=== PATIENT | female | born 1955 | race Caucasian/White ===

== ENCOUNTER 2024-08-14 14:15 | Outpatient (AMB) | payer MEDICARE, OTHER, SELFPAY ==
--- NOTE | 2024-08-14 14:21 | A.OFFPC_ITS ---
Vital Signs 08/14/24 14:35 08/14/24 14:51 Height 5 ft Weight 176 lb 2 oz BMI 34.4 BP 124/68 Blood Pressure Location Lt brachial Position Sitting Respiration 16 Pulse 86 Pulse Source Pulse Oximeter Temp 98.1 F Temp Source Oral Pulse Oximetry (%) 91 L 95 Oxygen Delivery Method Room Air Intake Visit Reasons: edmund from [facility] Intake Note: patient here for EDMUND from [facility]. 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 Is last menstrual period known: No Post menopausal: No Patient : No Allergies latex Allergy (Mild, Uncoded 08/14/24 14:27) rash Tobacco use date assessed: 08/14/24 Fall risk assessment: No Falls in past year Last assessed Fall Risk: 08/14/24 Dental Screening Dental Screen Date: 08/14/24 Did you have a dental visit in the last 12 months?: No Did you have a dental problem in the last 6 months where you did not have access to dental care?: No Was dental information given to patient?: No HPI HPI Comments History of Present Illness Details This is a 69-year-old female with a history of hyperlipidemia, hypothyroidism, DVT of the lower extremity, aneurysm of the ascending aorta, osteopenia and obesity presenting for follow up. She transferred from my panel at [facility] primary care. She is doing okay. Her needs back surgery soon. Hyperlipidemia taking atorvastatin 10 mg at bedtime. She is due for labs. Hypothyroidism-taking levothyroxine 137 mcg once daily. Due for TSH. 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 She has only trace aortic valve regurgitation. She was instructed to follow up in 1 year. She denies chest pain, shortness of breath, syncope or dizziness. She had an ultrasound of the abdominal aorta which was normal in 02/05/2021. She had an unremarkable nuclear stress test. Left lower extremity DVT-previously reviewed notes from Hematology consult from 06/16/2021. She suffered a DVT without provoking factor in 2018. She was initially treated with warfarin and is now on Xarelto. She has no bleeding or complications or recurrent thrombosis. Notes indicate thrombophilia workup was done. Shared decision to continue anticoagulation due to risk of recurrence off anticoagulation. Osteopenia on calcium and vitamin-D supplementation. She had a colonoscopy in 07/08/2023, and it was recommended to repeat it in 5 years for precancerous polyps. She will receive the COVID-19 booster and flu vaccine at her pharmacy. ROS: Constitutional: No unexplained weight loss, fever, chills, fatigue or night sweats. Respiratory: No shortness of breath, cough or sputum production. Cardiovascular: No chest pain, chest pressure or chest discomfort. No palpitations or pedal edema. Gastrointestinal: No anorexia, nausea, vomiting or diarrhea. No abdominal pain or blood in stool. Neurologic: No headache, dizziness, syncope, unilateral weakness, ataxia, numbness or tingling in the extremities. Physical exam: Constitutional: Alert, in no distress. Neck: Supple, Full range of motion. No lymphadenopathy. No palpable thyroid masses. Respiratory: Clear to auscultation. Cardiovascular: S1 S2 regular. No murmurs. Neurologic: No focal neurological deficits Extremities: Warm and well perfused. No clubbing, cyanosis or edema. Psychiatric: Normal mood and affect [facility] Medical History (Updated 08/14/24 @ 15:16 by YONI Borges) Osteopenia Thoracic aortic aneurysm (TAA) Deep vein thrombosis, lower left extremity Colon polyps Pure hypercholesterolemia Hypothyroidism Psoriasis Eczema Thyroid disease History of aneurysm History of blood clots High cholesterol Sinusitis FH: cholecystectomy Surgical History (Updated 08/14/24 @ 14:46 by Maria Elena Perez) H/O: hysterectomy Family History (Updated 08/14/24 @ 14:51 by Maria Elena Perez) Mother Clotting disorder Father Cancer Social History Housing: House Patient Tobacco Use Status: Never used Tobacco e-Cigarette/Vaping Use: Never Used Second Hand Smoke Exposure: No service: No Current occupational status: retired Current occupational exposures/hazards: No Cognitive needs: No Hearing needs: No Vision needs: No Questionnaire PHQ-9 Over the last 2 weeks, how often have you been bothered by any of the following problems? 1. Little interest or pleasure in doing things: not at all 2. Feeling down, depressed, or hopeless: not at all 3. Trouble falling or staying asleep, or sleeping too much: several days 4. Feeling tired or having little energy: not at all 5. Poor appetite or overeating: several days 6. Feeling bad about yourself - or that you are a failure or have let yourself or your family down: not at all 7. Trouble concentrating on things, such as reading the newspaper or watching television: not at all 8. Moving or speaking so slowly that other people could have noticed. Or the opposite - being so fidgety or restless that you have been moving around a lot more than usual: not at all 9. Thoughts that you would be better off or of hurting yourself in some way: not at all Total score: 2 75577 - PHQ-9 Billing: Yes Source: Developed by Drs. Ham Rodriguez, Wendy Garcia, Saeed Ariza and colleagues, with an educational natividad from [employer]. Thrive Questionnaire Date Thrive assessed: 08/14/24 I am a: Patient What is your living situation today?: I have a steady place to live Within the past 12 months, did the food you bought not last and you didn't have the money to get more?: Never true Within the past 12 months, did you worry whether your food would run out before you got money to buy more?: Never true Do you have trouble paying for medicines?: No Do you have trouble getting transportation to medical appointments?: No Do you have trouble paying your heating and electricity bill?: No Do you have trouble taking care of your child, family member or friend?: No Do you have trouble with day-to-day activities such as bathing, preparing meals, shopping, managing finances, etc.?: No Are you currently unemployed and looking for a job?: No Are you interested in more education?: No Please select the resources that you would like help with: None Currently or been in a relationship where the following occur: No concerns reported THRIVE Score: 0 AUDIT C Alcohol Use Questionnaire (AUDIT-C) 1. How often do you have a drink containing alcohol?: Never Total Score: 0 BROOK-7 AMB Questionnaire BROOK-7 Date BROOK - 7 assessed: 08/14/24 Feeling nervous, anxious, or on edge: 0 = Not at all Not being able to stop or control worryin = Not at all Worrying too much about different things: 0 = Not at all Trouble relaxin = Not at all Being so restless that it is hard to sit still: 2 = More than half the days Becoming easily annoyed or irritable: 0 = Not at all Feeling afraid as if something awful might happen: 0 = Not at all Total BROOK-7 score (0-4 normal; 5-9 mild; 10-14 moderate; 15-21 severe): 2 Source: Developed by Drs. Ham Rodriguez, Wendy Garcia, Saeed Ariza and colleagues, with an educational natividad from [employer]. BROOK-7 Assessment Billing BROOK-7 Assessment Tool: BROOK-7 Assessment 65643 Physical exam (Primary Care) Vital Signs: Last Vital Signs Temp 98.1 F 08/14/24 14:35 Pulse 86 08/14/24 14:35 Resp 16 08/14/24 14:35 BP 124/68 08/14/24 14:35 Pulse Ox 95 08/14/24 14:51 Oxygen Delivery Method Room Air 08/14/24 14:35 BMI result Body Mass Index 34.4 Tobacco/Smoking Status: Tobacco use Status Tobacco use date assessed 08/14/24 08/14/24 14:34 Patient Tobacco Use Status Never used Tobacco 08/14/24 14:34 e-Cigarette/Vaping Use Never Used 08/14/24 14:34 PHQ-9: PHQ-9 Score PHQ-9: Total score 2 08/14/24 14:58 Thrive Assessment: Date of Thrive Assessment Date Thrive assessed 08/14/24 08/14/24 14:41 Currently or been in a relationship where the following occur: No concerns reported Assessment and Plan Assessment & Plan (1) Thoracic aortic aneurysm (TAA): Code(s): I71.20 - Thoracic aortic aneurysm, without rupture, unspecified Qualifiers: Presence of rupture: without rupture Thoracic aorta location: ascending aorta Qualified Code(s): I71.21 - Aneurysm of the ascending aorta, without rupture Plan: Patient had a CT chest within the past year and will follow up with Cardiology as planned this September. (2) Osteopenia: Code(s): M85.80 - Other specified disorders of bone density and structure, unspecified site Qualifiers: Osteopenia location: unspecified Qualified Code(s): M85.80 - Other specified disorders of bone density and structure, unspecified site Plan: Continue calcium and vitamin-D supplementation, avoidance of smoking and weight- bearing exercise. (3) Deep vein thrombosis, lower left extremity: Code(s): I82.402 - Acute embolism and thrombosis of unspecified deep veins of left lower extremity Plan: Continue Xarelto 10 mg daily. (4) Colon polyps: Comment: Due for colonoscopy 06/2028 Code(s): K63.5 - Polyp of colon (5) Pure hypercholesterolemia: Code(s): E78.00 - Pure hypercholesterolemia, unspecified Plan: Continue atorvastatin. Low-cholesterol diet and weight loss encouraged. Check fasting lipid profile. (6) Hypothyroidism: Code(s): E03.9 - Hypothyroidism, unspecified Plan: Continue levothyroxine. Check TSH. Plan Follow up in 6 months. Orders: Orders TSH reflex Free T4 Today E03.9 - Hypothyroidism, unspecified, E78.00 - Pure hypercholesterolemia, unspecified, L40.9 - Psoriasis, unspecified Comprehensive Met. Panel Today E03.9 - Hypothyroidism, unspecified, E78.00 - Pure hypercholesterolemia, unspecified, L40.9 - Psoriasis, unspecified Complete Blood Count no Diff Today E03.9 - Hypothyroidism, unspecified, E78.00 - Pure hypercholesterolemia, unspecified, L40.9 - Psoriasis, unspecified Vitamin D 1,25 dihydroxy Today E03.9 - Hypothyroidism, unspecified, E78.00 - Pure hypercholesterolemia, unspecified, L40.9 - Psoriasis, unspecified Lipid Panel Today E03.9 - Hypothyroidism, unspecified, E78.00 - Pure hypercholesterolemia, unspecified, E78.5 - Hyperlipidemia, unspecified, L40.9 - Psoriasis, unspecified Coding Level of Care Code Est Pt Level 4 (96070) Complex EM visit Add On G2211 Diagnoses Aneurysm of ascending aorta without rupture I71.21 Presence of rupture: without rupture Thoracic aorta location: ascending aorta Osteopenia, unspecified location M85.80 Osteopenia location: unspecified Deep vein thrombosis, lower left extremity I82.402 Colon polyps K63.5 Pure hypercholesterolemia E78.00 Hypothyroidism E03.9 Additional Codes BROOK-7 Assessment Billing - BROOK-7 Assessment Tool: BROOK-7 Assessment 77070 ([id number])
[2024-08-14 14:35] VITALS: BP 124/68; PULSE 86; RESP 16; TEMP 36.7; O2SAT 91; BMI 34.4
[2024-08-14 14:51] VITALS: O2SAT 95
== END 2024-08-14 15:08 | disposition home or self-care (01) ==
PROVIDERS: PCP Physician Assistant Medical; Visit Provider Physician Assistant Medical
DX: I71.21 Aneurysm of the ascending aorta, without rupture (principal); M85.80 Other specified disorders of bone density and structure, unspecified site; I82.402 Acute embolism and thrombosis of unspecified deep veins of left lower extremity; K63.5 Polyp of colon; E78.00 Pure hypercholesterolemia, unspecified; E03.9 Hypothyroidism, unspecified

== ENCOUNTER → 2024-08-14 14:15 | Outpatient (BNVA) | payer MEDICARE, OTHER, SELFPAY | PROVIDERS: PCP Physician Assistant Medical; Visit Provider Physician Assistant Medical | DX: I71.21 Aneurysm of the ascending aorta, without rupture (principal); M85.80 Other specified disorders of bone density and structure, unspecified site; I82.402 Acute embolism and thrombosis of unspecified deep veins of left lower extremity; K63.5 Polyp of colon; E78.00 Pure hypercholesterolemia, unspecified; E03.9 Hypothyroidism, unspecified; Z79.01 Long term (current) use of anticoagulants; Z79.899 Other long term (current) drug therapy | CPT/HCPCS: 96127; 99212 ==

== ENCOUNTER 2024-08-28 07:58 | Outpatient (REF) | payer MEDICARE, OTHER, SELFPAY ==
[2024-08-28 11:43] LABS: Hematocrit 44.9 % (37.0-47.0); Hemoglobin 14.8 g/dl (12.0-16.0); Mean Corpuscular Hemoglobin 30.7 pg (27.0-33.0); Mean Corpuscular Volume 93.2 fL (80.0-98.0); Mean Platelet Volume 9.8 fL (9.4-12.3); Platelet Count 206 X10*3/uL (160-400); Red Blood Count 4.82 X10*6/uL (4.20-5.50); Red Cell Distribution Width 12.4 % (11.0-16.0); White Blood Count 5.2 X10*3/uL (4.8-10.8)
[2024-08-28 12:16] LABS: Alanine Aminotransferase 23 U/L (0-31); Albumin Level 4.4 g/dL (3.5-5.0); Alkaline Phosphatase 58 U/L (39-117); Anion Gap 12 (12-20); Aspartate Amino Transferase 19 U/L (5-31); Bilirubin Total 0.3 mg/dL (0.0-1.0); Blood Urea Nitrogen 14 mg/dL (9-16); Calcium 9.9 mg/dL (8.4-10.2); Carbon Dioxide 25 mmol/L (22-29); Chloride 107 mmol/L (96-108); Cholesterol 138 mg/dL (<200); Estimated Glomerular Filt Rate > 60; Glucose Random 100 mg/dL (60-115); HDL Cholesterol 45 mg/dL (>40); LDL Cholesterol Calculated 74 mg/dL (<100); Potassium 4.3 mmol/L (3.3-5.1); Sodium 140 mmol/L (135-145); TSH reflex Free T4 3.49 uIU/mL (0.32-4.0); Total Protein 7.3 g/dL (6.5-8.0); Triglycerides 99 mg/dL (<150)
[2024-09-01 12:03] LABS: VITAMIN D (1,25 OH) D3 62 pg/mL; Vit D (1,25-Dihydroxy) Total 62 pg/mL (18-72); Vitamin D (1,25 OH) D2 <8 pg/mL
== END 2024-08-28 07:59 | disposition home or self-care (01) ==
LOC: HO.WFDLDS 07:58
PROVIDERS: Visit Provider Physician Assistant Medical
DX: E03.9 Hypothyroidism, unspecified (principal); E78.00 Pure hypercholesterolemia, unspecified; L40.9 Psoriasis, unspecified; E78.5 Hyperlipidemia, unspecified
CPT/HCPCS: 36415; 80053; 80061; 82652; 84443; 85027

== ENCOUNTER 2024-10-25 11:35 | Emergency (ER) | payer MEDICARE, OTHER, SELFPAY ==
--- NOTE | 2024-10-25 11:50 | ED_ITS ---
HPI - Ear Problem General Chief complaint: Ear Problems Stated complaint: ear and sisnus infection Time Seen by Provider: 10/25/24 15:22 Source: patient Mode of arrival: ambulatory Limitations: no limitations History of Present Illness ED Provider: MARTY STEPHENSON PA-C HPI Narrative: 69 year old female with pmhx significant for hypothyroidisim, HLD, DVT on AC therapy presents to the ED today for evaluation of sinus pressure, head congestion, eye watering and bilateral ear pain (L>R) x1 week. Reports pain over her maxillary sinuses, worse with palpation. Admits to history of sinus infec tions and states this feels similar. Denies fever, chills, sore throat, cough, chest pain, SOB, wheezing. Denies ear drainage, eye crusting, eye pain. UTD on all vaccinations. Related Data Home Medications ?Medication ?Instructions ?Recorded ?Confirmed cetirizine 10 mg capsule (Zyrtec) 10 mg PO DAILY PRN 08/14/24 Previous Rx's ?Medication ?Instructions ?Recorded atorvastatin 10 mg tablet 10 mg PO BEDTIME #90 tabs 09/30/24 levothyroxine 137 mcg capsule 137 mcg PO DAILY #90 caps 09/30/24 rivaroxaban 10 mg tablet (Xarelto) 10 mg PO DAILY #90 tabs 09/30/24 amoxicillin 875 mg-potassium 1 tab PO BID 7 days #14 tabs 10/25/24 clavulanate 125 mg tablet ciprofloxacin 0.3 %-dexamethasone 4 drp otic (ear) left BID 7 days 10/25/24 0.1 % ear drops,suspension #7.5 mL Allergies Allergy/AdvReac Type Severity Reaction Status Date / Time phenazopyridine Allergy Unknown Verified 10/25/24 11:51 [From Pyridium] latex Allergy Mild rash Uncoded 10/25/24 11:51 Review of Systems Review of Systems: Constitutional: No fever, chills, fatigue, night sweats, weight changes ENT/Mouth: No hearing loss, nasal congestion, rhinorrhea, sore throat, +sinus pain. +left ear pain Eyes: No eye pain, swelling, redness, vision changes, discharge Cardio: No chest pain, palpitations, PUGA, orthopnea, peripheral edema Pulm: No SOB, cough, sputum, wheezing, dyspnea, hemoptysis GI: No nausea, vomiting, hematemesis, abdominal pain, diarrhea, constipation, hematochezia, melena : No irregular bleeding, dysuria, frequency, urgency, hesitancy, hematuria, flank pain, urinary flow changes, urinary incontinence or retention MSK: No back pain, neck pain, joint pain, myalgias Skin: No lesions, rashes Neuro: No weakness, numbness, paresthesias, LOC, dizziness, +headache Psych: No anxiety/panic, depression, SI/HI, AH/VH All other systems reviewed and are negative. [facility] Past Medical History Attestation statement: The following information was validated with the patient. Source: old records reviewed and nursing notes reviewed Medical History Osteopenia Thoracic aortic aneurysm (TAA) Deep vein thrombosis, lower left extremity Colon polyps Pure hypercholesterolemia Hypothyroidism Psoriasis Eczema Thyroid disease History of aneurysm History of blood clots High cholesterol Sinusitis FH: cholecystectomy Surgical History H/O: hysterectomy Family History Family History Mother Clotting disorder Father Cancer Social History Social History Housing: House Patient Tobacco Use Status: Never used Tobacco e-Cigarette/Vaping Use: Never Used Second Hand Smoke Exposure: No Advance Directives: No Advance Directives Information Provided: No Do you have a plan to hurt others: No Plan service: No Current occupational status: retired Current occupational exposures/hazards: No Cognitive needs: No Hearing needs: No Vision needs: No Physical Exam Vital Signs: Vital Signs: Last Vital Signs Temp 97.8 F 10/25/24 14:33 Pulse 76 10/25/24 14:33 Resp 19 10/25/24 14:33 BP 164/88 H 10/25/24 14:33 Pulse Ox 98 10/25/24 14:33 O2 Del Method Room Air 10/25/24 14:33 BMI result Body Mass Index 34.2 hypertensive, vitals otherwise wnl. afebrile. General: Well appearing, in no acute distress. Skin: Warm, dry, intact. No rashes or lesions. Head: Normocephalic, atraumatic. EENT: Hearing is intact b/l. Conjunctiva clear. PERRLA. EOM intact without pain. Moist mucous membranes.? Exquisitely tender to percussion of bilateral maxillary sinuses. + pain on manipulation of left pinna. No mastoid tenderness. Left EAC erythematous and edematous without noted discharge TM intact without erythema, effusion, or bulging. + No pain on manipulation of right pinna or tragus. No mastoid tenderness. Right EAC without erythema, edema or discharge. TM intact without erythema, effusion, or bulging. Neck: Supple without LAD Cardiac: Chest wall symmetric. RRR Lungs: Normal respiratory effort without accessory muscle use. CTA bilaterally? Back: No midline spinous or paraspinal tenderness. No step off deformity. Ext: Upper and lower extremities atraumatic, without tenderness, deformity, swelling or erythema Neuro: AOx3. Normal speech. Ambulating with steady gait. Psych: Appropriate mood and affect. Responds appropriately to questions. Course Course Course Narrative: This is a rapid medical exam. Deferred additional HPI, ROS, PE to primary provider. 69 yo female with history of hypothyroidisim, HLD, DVT on AC therapy here with complaints of headache, sinus pain/pressure, eye watering, ear pain x 1 week. Will obtain viral testing. NAA Dang APRN Reevaluation(s) Reevaluation #1: 1540 -- patient tested negative for COVID, flu, RSV. Her exam is consistent with maxillary sinusitis along with left otitis externa. She was given a dose of Augmentin in the ED today. Will send Augmentin and Ciprodex to pharmacy for treatment. Patient has remained stable throughout ED visit today. Discussed worrisome signs and symptoms and when to return to the ED. All questions answered at this time. Patient is agreeable with disposition and stable for discharge. Medical Decision Making Medical Decision Making MDM Narrative: 69 year old female with pmhx significant for hypothyroidisim, HLD, DVT on AC therapy presents to the ED today for evaluation of sinus pressure, head congestion, eye watering and bilateral ear pain (L>R) x1 week. Vital signs stable. afebrile. she is nontoxic appearing and in NAD. on exam, exquisitely ten pedro to percussion of bilateral maxillary sinuses. pain on manipulation of left pinna. No mastoid tenderness. Left EAC erythematous and edematous without noted discharge TM intact without erythema, effusion, or bulging. Differential diagnosis includes viral syndrome, sinusitis, otitis media versus otitis externa. No concern for mastoiditis, malignant otitis externa. Plan for viral swabs, re-evaluation Differential Diagnosis Differential Diagnoses: The differential diagnosis associated with the presentation includes as above. Admission/Observation Not indicated. Lab Data MDM Lab Attestation statement: I reviewed the patient's lab results. as above. Labs: Lab Results 10/25/24 Range/Units 13:09 Influenza Type A (PCR) NEGATIVE (Negative) Influenza Type B (PCR) NEGATIVE (Negative) RSV RNA Qual (PCR) NEGATIVE (Negative) SARS-CoV-2 RNA (RT-PCR) NEGATIVE (Negative) Prescription Management I considered prescription management with: Antibiotic (augmentin) and Other (ciprodex) Social Determinants Patient?s care significantly limited by Social Determinants of Health including: Other Social Determinant of Health Critical Care Time Critical Care Time Critical Care Time: No Discharge Plan Discharge Clinical Impression: Sinusitis, Acute otitis externa of left ear Patient Disposition: Home, Self-Care Instructions: Sinusitis (ED), Otitis Externa (ED) Additional Instructions: You tested negative for COVID, flu, RSV. Your exam is consistent with a sinus infection and an outer ear infection of your left ear. Augmentin as an antibiotic that has been sent to your pharmacy to treat your sinus infection. You received your 1st dose in the ED today Take this as prescribed. I have also sent an ear drop to treat your ear infection. Use this as prescribed. Take tylenol and motrin as needed for headache. Follow up with your PCP this week. Return with new or worsening symptoms. In the case of an emergency call 911. Prescriptions: New amoxicillin-pot clavulanate 875-125 mg tablet 1 tab PO BID 7 Days Qty: 14 0RF ciprofloxacin-dexamethasone 0.3-0.1 % drops,suspension 4 drp otic (ear) left BID 7 Days Qty: 7.5 0RF No Action Xarelto 10 mg tablet 10 mg PO DAILY Qty: 90 3RF Rx Instructions: for 35 days levothyroxine 137 mcg capsule 137 mcg PO DAILY Qty: 90 3RF atorvastatin 10 mg tablet 10 mg PO BEDTIME Qty: 90 3RF Zyrtec 10 mg capsule 10 mg PO DAILY PRN Referrals: Jennifer Krishnamurthy PA [Primary Care Provider] - Print Language: Portuguese
[2024-10-25 11:51] VITALS: BP 167/97; PULSE 74; RESP 19; TEMP 36.6; O2SAT 98; BMI 34.2
[2024-10-25 14:30] LABS: Influenza A PCR NEGATIVE (Negative); Influenza B PCR NEGATIVE (Negative); Resp Syncy Virus RNA Qual PCR NEGATIVE (Negative); SARS COV2 PCR INHOUSE NEGATIVE (Negative)
[2024-10-25 14:33] VITALS: BP 164/88; PULSE 76; RESP 19; TEMP 36.6; O2SAT 98
[2024-10-25 15:55] VITALS: BP 148/81; PULSE 80; RESP 19; TEMP 36.8; O2SAT 97
[2024-10-25] MEDS: Amoxicillin/Potassium Clav 875 MG TABLET PO (15:55)
[2024-10-25 16:17] VITALS: BP 148/81; PULSE 80; RESP 19; TEMP 36.8; O2SAT 97
== END 2024-10-25 16:18 | disposition home or self-care (01) ==
PROVIDERS: Nurse Practitioner Family; Emergency Provider Emergency Medicine Emergency Medical Services; PCP Physician Assistant Medical
DX: J32.0 Chronic maxillary sinusitis (principal); H60.502 Unspecified acute noninfective otitis externa, left ear; Z03.818 Encounter for observation for suspected exposure to other biological agents ruled out
CPT/HCPCS: 0241U; 99282; 99283

== ENCOUNTER 2025-02-12 08:55 | Outpatient (AMB) | payer MEDICARE, OTHER, SELFPAY ==
--- NOTE | 2025-02-12 08:58 | A.OFFPC_ITS ---
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 Allergies phenazopyridine [From Pyridium] Allergy (Verified 02/12/25 08:58) Unknown latex Allergy (Mild, Uncoded 10/25/24 11:51) rash Medication List - Last Reconciled 02/12/25 by YONI Borges atorvastatin 10 mg PO BEDTIME cetirizine (Zyrtec) 10 mg PO DAILY PRN rivaroxaban (Xarelto) 10 mg PO DAILY Synthroid (levothyroxine) 137 mcg PO DAILY NS Tobacco use date assessed: 02/12/25 Fall risk assessment: 1 Fall in past year Last assessed Fall Risk: 02/12/25 Dental Screening Dental Screen Date: 02/12/25 Did you have a dental visit in the last 12 months?: Yes Did you have a dental problem in the last 6 months where you did not have access to dental care?: No Was dental information given to patient?: Patient has dentist HPI HPI Comments History of Present Illness Details This is a 69-year-old female with a history of hyperlipidemia, hypothyroidism, DVT of the lower extremity, aneurysm of the ascending aorta, osteopenia and obesity presenting for follow up. She is doing okay. Her is still dealing with back pain which could be related to Lyme disease. They are unsure if he needs back surgery. Hyperlipidemia taking atorvastatin 10 mg at bedtime. LDL cholesterol 74. Hypothyroidism-taking Synthroid 137 mcg once daily. TSH normal. History of ascending aortic aneurysm-patient reports she saw her child care associate in 2023. She had an echocardiogram which showed trace aortic valve regurgitation. She was instructed to follow up in 1 year. She denies chest pain, shortness of breath, syncope or dizziness. She had an ultrasound of the abdominal aorta which was normal in 02/05/2021. She had an unremarkable nuclear stress test. Patient requests referral back to Cardiology so they can schedule her follow up for 2024. Left lower extremity DVT-previously reviewed notes from Hematology consult from 06/16/2021. She suffered a DVT without provoking factor in 2018. She was initially treated with warfarin and is now on Xarelto. She has no bleeding or complications or recurrent thrombosis. Notes indicate thrombophilia workup was done. Shared decision to continue anticoagulation due to risk of recurrence off anticoagulation. Osteopenia-calcium and vitamin-D supplementation. She had a colonoscopy in 07/08/2023, and it was recommended to repeat it in 5 years for precancerous polyps. Patient endorses anxiety which is affecting her sleep. She has difficulty falling asleep and waking up at night and having difficulty falling back to sleep. Patient says that her mind races about all the things she needs to do the next day. During the day she is also anxious about getting them done. She endorses irritability. ROS: Constitutional: No unexplained weight loss, fever, chills, fatigue or night sweats. Respiratory: No shortness of breath, cough or sputum production. Cardiovascular: No chest pain, chest pressure or chest discomfort. No palpitations or pedal edema. Gastrointestinal: No anorexia, nausea, vomiting or diarrhea. No abdominal pain or blood in stool. Neurologic: No headache, dizziness, syncope, unilateral weakness, ataxia, numbness or tingling in the extremities. Physical exam: Constitutional: Alert, in no distress. Neck: Supple, Full range of motion. No lymphadenopathy. No palpable thyroid masses. Respiratory: Clear to auscultation. Cardiovascular: S1 S2 regular. No murmurs. Neurologic: No focal neurological deficits Extremities: Warm and well perfused. No clubbing, cyanosis or edema. Psychiatric: Normal mood and affect [facility] Medical History (Updated 02/13/25 @ 11:00 by YONI Borges) Anxiety Osteopenia Thoracic aortic aneurysm (TAA) Deep vein thrombosis, lower left extremity Colon polyps Pure hypercholesterolemia Hypothyroidism Psoriasis Eczema Thyroid disease History of aneurysm History of blood clots High cholesterol Sinusitis FH: cholecystectomy Surgical History H/O: hysterectomy Family History Mother Clotting disorder Father Cancer Social History Housing: House Patient Tobacco Use Status: Never used Tobacco e-Cigarette/Vaping Use: Never Used Second Hand Smoke Exposure: No service: No Current occupational status: retired Current occupational exposures/hazards: No Cognitive needs: No Hearing needs: No Vision needs: No Questionnaire PHQ-9 Over the last 2 weeks, how often have you been bothered by any of the following problems? 1. Little interest or pleasure in doing things: not at all 2. Feeling down, depressed, or hopeless: not at all 3. Trouble falling or staying asleep, or sleeping too much: several days 4. Feeling tired or having little energy: several days 5. Poor appetite or overeating: not at all 6. Feeling bad about yourself - or that you are a failure or have let yourself or your family down: not at all 7. Trouble concentrating on things, such as reading the newspaper or watching television: not at all 8. Moving or speaking so slowly that other people could have noticed. Or the opposite - being so fidgety or restless that you have been moving around a lot more than usual: not at all 9. Thoughts that you would be better off or of hurting yourself in some way: not at all Total score: 2 Depression Screening Interpretation: Negative Depression Screening Done: Yes 98615 - PHQ-9 Billing: Yes Source: Developed by Drs. Ham Rodriguez, Wendy Garcia, Saeed Ariza and colleagues, with an educational natividad from [employer]. Thrive Questionnaire Date Thrive assessed: 02/12/25 I am a: Patient What is your living situation today?: I have a steady place to live Within the past 12 months, did the food you bought not last and you didn't have the money to get more?: Never true Within the past 12 months, did you worry whether your food would run out before you got money to buy more?: Never true Do you have trouble paying for medicines?: No Do you have trouble getting transportation to medical appointments?: No Do you have trouble paying your heating and electricity bill?: No Do you have trouble taking care of your child, family member or friend?: No Do you have trouble with day-to-day activities such as bathing, preparing meals, shopping, managing finances, etc.?: No Are you currently unemployed and looking for a job?: No Are you interested in more education?: No Please select the resources that you would like help with: None Currently or been in a relationship where the following occur: No concerns reported THRIVE Score: 0 AUDIT C Alcohol Use Questionnaire (AUDIT-C) 1. How often do you have a drink containing alcohol?: Monthly or less 2. How many drinks containing alcohol do you have on a typical day when you are drinking?: 1 or 2 3. How often do you have six or more drinks on one occasion?: Never Total Score: 1 BROOK-7 AMB Questionnaire BROOK-7 Date BROOK - 7 assessed: 02/12/25 Feeling nervous, anxious, or on edge: 1 = Several days Not being able to stop or control worryin = Several days Worrying too much about different things: 1 = Several days Trouble relaxin = Several days Being so restless that it is hard to sit still: 1 = Several days Becoming easily annoyed or irritable: 1 = Several days Feeling afraid as if something awful might happen: 0 = Not at all Total BROOK-7 score (0-4 normal; 5-9 mild; 10-14 moderate; 15-21 severe): 6 Source: Developed by Drs. Ham Rodriguez, Wendy Garcia, Saeed Ariza and colleagues, with an educational natividad from [employer]. BROOK-7 Assessment Billing BROOK-7 Assessment Tool: BROOK-7 Assessment 16145 Physical exam (Primary Care) Vital Signs: Last Vital Signs Temp 97.1 F 02/12/25 09:01 Pulse 76 02/12/25 09:01 Resp 12 02/12/25 09:01 BP 124/70 02/12/25 09:01 Pulse Ox 95 02/12/25 09:01 Oxygen Delivery Method Room Air 02/12/25 09:01 BMI result Body Mass Index 35.2 Tobacco/Smoking Status: Tobacco use Status Tobacco use date assessed 02/12/25 02/12/25 09:00 Patient Tobacco Use Status Never used Tobacco 02/12/25 09:00 e-Cigarette/Vaping Use Never Used 02/12/25 09:00 PHQ-9: PHQ-9 Score PHQ-9: Total score 2 02/12/25 09:24 Depression Screening Interpretation: Negative Thrive Assessment: Date of Thrive Assessment Date Thrive assessed 02/12/25 02/12/25 09:00 Currently or been in a relationship where the following occur: No concerns reported Coding Level of Care Code Est Pt Level 4 (00529) Complex EM visit Add On G2211 Diagnoses Anxiety F41.9 Osteopenia, unspecified location M85.80 Osteopenia location: unspecified Deep vein thrombosis, lower left extremity I82.402 Chronicity: unspecified Colon polyps K63.5 Colon polyp type: unspecified Pure hypercholesterolemia E78.00 Other specified hypothyroidism E03.8 Hypothyroidism type: other Aneurysm of ascending aorta without rupture I71.21 Thoracic aorta location: ascending aorta Presence of rupture: without rupture Additional Codes BROOK-7 Assessment Billing - BROOK-7 Assessment Tool: BROOK-7 Assessment 11218 ([id number]) PHQ-9 - 32886 - PHQ-9 Billing: Yes ([id number]) Assessment & Plan Assessment & Plan (1) Anxiety: Code(s): F41.9 - Anxiety disorder, unspecified Category: Medical (2) Osteopenia: Code(s): M85.80 - Other specified disorders of bone density and structure, unspecified site Category: Medical Qualifiers: Osteopenia location: unspecified Qualified Code(s): M85.80 - Other specified disorders of bone density and structure, unspecified site (3) Deep vein thrombosis, lower left extremity: Code(s): I82.402 - Acute embolism and thrombosis of unspecified deep veins of left lower extremity Category: Medical Qualifiers: Chronicity: unspecified (4) Colon polyps: Comment: Due for colonoscopy 06/2028 Code(s): K63.5 - Polyp of colon Category: Medical Qualifiers: Colon polyp type: unspecified (5) Pure hypercholesterolemia: Code(s): E78.00 - Pure hypercholesterolemia, unspecified Category: Medical (6) Hypothyroidism: Code(s): E03.9 - Hypothyroidism, unspecified Category: Medical Qualifiers: Hypothyroidism type: other Qualified Code(s): E03.8 - Other specified hypothyroidism (7) Thoracic aortic aneurysm (TAA): Code(s): I71.20 - Thoracic aortic aneurysm, without rupture, unspecified Category: Medical Qualifiers: Thoracic aorta location: ascending aorta Presence of rupture: without rupture Qualified Code(s): I71.21 - Aneurysm of the ascending aorta, without rupture Plan Thoracic aortic aneurysm (TAA) Followed by Cardiology. Monitoring. Referred back so follow up can be schedule d for 2024. Blood pressure is well-controlled. Avoid alcohol and tobacco use. Osteopenia Continue calcium and vitamin-D supplementation, avoidance of smoking and weight- bearing exercise. Deep vein thrombosis, lower left extremity Continue Xarelto 10 mg daily. Colon polyps: Due for colonoscopy 06/2028 Pure hypercholesterolemia Continue atorvastatin. Low-cholesterol diet and weight loss encouraged. Hypothyroidism: Euthyroid. Continue Synthroid. Anxiety Declines referral for counseling. Reviewed medications available to treat symptoms. It is affecting sleep. She declines medication at this time. She is going to try THC/CBD gummies. She will let me know if her symptoms continue. Follow up in 6 months. Patient declines wellness visit Orders: Orders TSH reflex Free T4 5 Months E03.9 - Hypothyroidism, unspecified, E78.00 - Pure hypercholesterolemia, unspecified, I82.402 - Acute embolism and thrombosis of unspecified deep veins of left lower extremity, M85.80 - Other specified disorders of bone density and structure, unspecified site Lipid Panel 5 Months E03.9 - Hypothyroidism, unspecified, E78.00 - Pure hypercholesterolemia, unspecified, E78.5 - Hyperlipidemia, unspecified, I82.402 - Acute embolism and thrombosis of unspecified deep veins of left lower extremity, M85.80 - Other specified disorders of bone density and structure, unspecified site Vitamin D 25-OH (D2 and D3) 5 Months E03.9 - Hypothyroidism, unspecified, E78.00 - Pure hypercholesterolemia, unspecified, I82.402 - Acute embolism and thrombosis of unspecified deep veins of left lower extremity, M85.80 - Other specified disorders of bone density and structure, unspecified site Complete Blood Count no Diff 5 Months E03.9 - Hypothyroidism, unspecified, E78.00 - Pure hypercholesterolemia, unspecified, I82.402 - Acute embolism and thrombosis of unspecified deep veins of left lower extremity, M85.80 - Other specified disorders of bone density and structure, unspecified site Comprehensive Met. Panel 5 Months E03.9 - Hypothyroidism, unspecified, E78.00 - Pure hypercholesterolemia, unspecified, I82.402 - Acute embolism and thrombosis of unspecified deep veins of left lower extremity, M85.80 - Other specified disorders of bone density and structure, unspecified site Referrals Cardiology Referral I71.21 - Aneurysm of the ascending aorta, without rupture Medications: Discontinued amoxicillin-pot clavulanate 875-125 mg Discontinued Reason: Doctor's Order 1 tab PO BID 7 days 14 tabs 0RF ciprofloxacin-dexamethasone 0.3-0.1 % Discontinued Reason: Doctor's Order 4 drps otic (ear) left BID 7 days 7.5 mL 0RF
[2025-02-12 09:01] VITALS: BP 124/70; PULSE 76; RESP 12; TEMP 36.2; O2SAT 95; BMI 35.2
== END 2025-02-12 09:33 | disposition home or self-care (01) ==
LOC: HO.HMCFM 08:56
PROVIDERS: PCP Physician Assistant Medical; Visit Provider Physician Assistant Medical
DX: I82.402 Acute embolism and thrombosis of unspecified deep veins of left lower extremity (principal); I71.21 Aneurysm of the ascending aorta, without rupture; F41.9 Anxiety disorder, unspecified; M85.80 Other specified disorders of bone density and structure, unspecified site; K63.5 Polyp of colon; E78.00 Pure hypercholesterolemia, unspecified; E03.8 Other specified hypothyroidism

== ENCOUNTER → 2025-02-12 08:55 | Outpatient (BNVA) | payer MEDICARE, OTHER, SELFPAY | PROVIDERS: PCP Physician Assistant Medical; Visit Provider Physician Assistant Medical | DX: E03.8 Other specified hypothyroidism (principal); E78.5 Hyperlipidemia, unspecified; E66.9 Obesity, unspecified; M54.9 Dorsalgia, unspecified; F41.9 Anxiety disorder, unspecified; M85.80 Other specified disorders of bone density and structure, unspecified site; I82.402 Acute embolism and thrombosis of unspecified deep veins of left lower extremity; K63.5 Polyp of colon; E78.00 Pure hypercholesterolemia, unspecified; I71.21 Aneurysm of the ascending aorta, without rupture; Z86.718 Personal history of other venous thrombosis and embolism; Z79.899 Other long term (current) drug therapy | CPT/HCPCS: 96127; 99212 ==

== ENCOUNTER 2025-07-24 12:21 | Outpatient (AMB) | payer MEDICARE, OTHER, SELFPAY ==
--- NOTE | 2025-07-24 12:23 | AM.OFFWIN_ITS ---
Intake Vital Signs 07/24/25 12:26 Height 5 ft Weight 177 lb 6 oz BMI 34.6 BP 142/76 H Blood Pressure Location Rt brachial Position Sitting Respiration 12 Pulse 95 Pulse Source Pulse Oximeter Temp 97.8 F Temp Source Oral Pulse Oximetry (%) 98 Oxygen Delivery Method Room Air Intake Visit Reasons: Headache, pressure, earaches, both ears clogged. 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 Allergies phenazopyridine (From Pyridium) Allergy (Verified 07/24/25 12:24) Unknown latex Allergy (Mild, Uncoded 07/24/25 12:24) rash Medication List - Last Reconciled 07/24/25 by SORIN Estrada-BINH atorvastatin 10 mg PO BEDTIME cetirizine (Zyrtec) 10 mg PO DAILY PRN rivaroxaban (Xarelto) 10 mg PO DAILY Synthroid (levothyroxine) 137 mcg PO DAILY NS Do you need a note to return to daycare/school/sports/work: No HPI HPI Comments History of Present Illness Details 70 year-old female with hyperlipidemia, hypothyroidism, DVT of the lower extremity, aneurysm of the ascending aorta, osteopenia and obesity presenting with sinus pressure, difficulty hearing and chest pain. - Intermittent chest pain related to a k nown thoracic aortic aneurysm. Reports this is chronic and intermittent. Review of record: History of ascending aortic aneurysm-patient reports she saw her synthetic resin operator in 2023. She had an echocardiogram which showed trace aortic valve regurgitation. She was instructed to follow up in 1 year. She denies chest pain, shortness of breath, syncope or dizziness. She had an ultrasound of the abdominal aorta which was normal in 02/05/2021. She had an unremarkable nuclear stress test. Patient requests referral back to Cardiology so they can schedule her follow up for 2024. She reports being ff'd by Dr Arteaga. Next appt 09/2025. - Recent shortness of breath with onset within the past couple of weeks. - Denies cough, asthma, and COPD. - Head symptoms including sinus pressure and ear fullness preceded other sympto ms. - Sinus congestion began 2-3 weeks ago, treated unsuccessfully with OTC medications. - Denies dizziness or weakness, aside fr om head symptoms. Review of Systems - Respiratory: Reports chest pain; denie s cough. - Cardiac: Reports chest pain. - ENT: Reports sinus congestion, facial pressure, and ear fluid sensation. - General: Reports shortness of breath. - Neurological: Denies dizziness and wea kness. Physical Exam General: Awake, alert, no apparent distress Eyes: Sclera and conjunctiva clear bilaterally Ears: TM with mucoid effusions bilat Nose: turbinates pale and edematous, frontal and maxillary sinus tenderness bilat Throat: Moist mucosa membrane, pharynx within normal limits Cardiovascular: Regular rate and rhythm Respiratory: Clear to auscultation bilaterally Results Pending Discussion Notes I discussed with the patient the diagnosis of sinusitis and a known thoracic aortic aneurysm. Given her c/o chest pain recommended EKG. Declined, stating this is normal for her. To treat her sinus infection, I recommended starting Augmentin. We talked about the necessity of following up with a chest x-ray, particularly to evaluate the thoracic aortic aneurysm for any potential changes such as widening or leakage and to r/o PNA given c/o SOB. I encouraged completing this test today. I advised the continuation of usual medications and to notify us if there is no improvement after completing the antibiotic course. Patient was given time to ask questions. All questions were answered to their satisfaction. Assessment and Plan 1. Sinusitis/ETD - Augmentin prescribed for 7 days. - Monitor symptom resolution. 2. Thoracic Aortic Aneurysm - Recommend chest x-ray. - Evaluate for changes. - Declined EKG 3. Shortness of Breath - Monitor for resolution. 4. Chest Pain - Monitor symptoms. Patient Instructions - Take Augmentin as prescribed, with karmen d to prevent stomach upset. - Go for chest x-ray either today - Expect follow-up call or portal messag e for x-ray results. - If symptoms persist after antibiotics, send a portal message. - Rest and stay indoors when feeling unw ell. - Contact us if symptoms worsen. Consent Patient was informed and verbally consented to the use of an ambient scribe for clinic note documentation during this visit. Total time spent caring for the patient today was 30 minutes. This includes time spent before the visit reviewing the chart, time spent during the visit, and time spent after the visit on documentation, reviewing laboratory results, diagnostic imaging, medications, performing a medically necessary evaluation, counseling on diagnoses, care coordination, ordering appropriate tests, ordering appropriate medications, review of tests performed by other providers, reporting test results with the patient, communication with other healthcare providers. [facility] Medical History (Updated 02/13/25 @ 11:00 by YONI Borges) Anxiety Colon polyps Deep vein thrombosis, lower left extremity Eczema FH: cholecystectomy High cholesterol History of aneurysm History of blood clots Hypothyroidism Osteopenia Psoriasis Pure hypercholesterolemia Sinusitis Thoracic aortic aneurysm (TAA) Thyroid disease Surgical History H/O: hysterectomy Family History Mother Clotting disorder Father Cancer Social History Housing: House Patient Tobacco Use Status: Never used Tobacco e-Cigarette/Vaping Use: Never Used Second Hand Smoke Exposure: No service: No Current occupational status: retired Current occupational exposures/hazards: No Cognitive needs: No Hearing needs: No Vision needs: No Physical Exam Vital Signs: Last Vital Signs Temp 97.8 F 07/24/25 12:26 Pulse 95 07/24/25 12:26 Resp 12 07/24/25 12:26 BP 142/76 H 07/24/25 12:26 Pulse Ox 98 07/24/25 12:26 Oxygen Delivery Method Room Air 07/24/25 12:26 BMI result Body Mass Index 34.6 Results Reviewed Results Reviewed: The cardiac, hilar, and mediastinal contours are normal. Aortic mural calcification and tortuosity.1 Lungs demonstrate linear atelectasis or scarring in both lung bases. Lungs otherwise clear. No consolidation. There is no pneumothorax or pleural effusion. There is no focal osseous or soft tissue abnormality. There are cholecystectomy clips present. XR/XR chest 2V IMPRESSION: 1. No active pulmonary disease. 2. Marked tortuosity of the thoracic aorta with associated mural calcifications. Assessment & Plan Assessment & Plan (1) Thoracic aortic aneurysm (TAA): Code(s): I71.20 - Thoracic aortic aneurysm, without rupture, unspecified Qualifiers: Presence of rupture: without rupture Thoracic aorta location: ascending aorta Qualified Code(s): I71.21 - Aneurysm of the ascending aorta, without rupture (2) Acute bacterial sinusitis: Code(s): J01.90 - Acute sinusitis, unspecified; B96.89 - Other specified bacterial agents as the cause of diseases classified elsewhere Orders: Orders XR chest 2V Today I71.21 - Aneurysm of the ascending aorta, without rupture Medications: New amoxicillin-pot clavulanate 875-125 mg 1 tab PO BID 14 tabs 0RF 7 days Coding Diagnoses Aneurysm of ascending aorta without rupture I71.21 Presence of rupture: without rupture Thoracic aorta location: ascending aorta Acute bacterial sinusitis J01.90; B96.89
[2025-07-24 12:26] VITALS: BP 142/76; PULSE 95; RESP 12; TEMP 36.6; O2SAT 98; BMI 34.6
--- OUTSIDE RECORDS SUMMARY | 2025-07-24 12:50 | XMS_ITS | Clinical Summary ---
Author Organization [facility] [address] [facility] Address [address] [place] [address] Phone Care Team Providers Care Electron Beam Photo Mask Technician Name Role Phone Kym Peña MD Primary Care Provider [phone] Immunizations Name Administration Dates Next Due Pfizer SARS-CoV-2 COVID-19, mRNA, LNP-S, preservative free 03/10/2021,02/15/2021 Surgical History Surgery Date Site/Laterality Comments SECTION PROCEDURE: MD DELIVERY ONLY TONSILLECTOMY PROCEDURE: HISTORICAL TONSILLECTOMY TUBAL LIGATION PROCEDURE: HISTORICAL TUBAL LIGATION OTHER SURGICAL HISTORY PROCEDURE: MD TOT ABD HYST W/WO RMVL TUBE OVARY W/COLPURETHRXY; COMMENT: laparoscopic hyst, RSO, left ovary remains OTHER SURGICAL HISTORY PROCEDURE: PELVIC CONTROL PELVIC SLING; COMMENT: for MAN CHOLECYSTECTOMY 2013 PROCEDURE: LAPAROSCOPIC CHOLECYSTECT Medical History Medical History Date Comments Osteopenia 08/07/2012 DX:Osteopenia Personal history of tobacco use 11/06/2012 DX:Personal history of tobacco use Preseptal cellulitis 11/06/2012 DX:Presepta l cellulitis Prolapsed uterus DX:Prolapsed ut erus Family History Medical History Relation Name Comments Thyroid disease Daughter 1 Ovarian cancer Maternal Grandmother Abdominal Aortic Anuerysm (AAA) Mother ruptured age 68yo Breast cancer Neg Hx Colon cancer Neg Hx Uterine cancer Neg Hx Relation Name Status Comments Brother Alive healthy Daughter 1 Daughter 2 Alive healthy Daughter 3 Alive healthy Daughter 4 Alive healthy Father (Age 83) prostate C ancer, bone Cancer Maternal Grandmother Mother (Age 68) aortic ane urysm Paternal Grandfather (Age 65) [place] Sister 1 Alive healthy Sister 2 Alive healthy Sister 3 Alive healthy Sister 4 Alive healthy Son Alive healthy Social History Tobacco Use Types Packs/Day Years Used Date Smoking Tobacco: Former Cigarettes Q uit: 09/17/2011 Smokeless Tobacco: Never Alcohol Use Standard Drinks/Week Comments No 0 (1 standard drink = 0.6 oz pur e alcohol) Comments Unknown Sex and Gender Information Value Date Recorded Sex Assigned at Female 12/17/2024 10:39 AM EST Legal Sex Female 11:34 AM EST Gender Identity Female 12/17/2024 10:39 AM EST Sexual Orientation Not on file Obstetrics History Plan of Treatment Health Maintenance Due Date Last Done Comments Zoster Vaccines (2 of 3) 11/05/2013 09/10/2013 Cholesterol Screening (Lipid Panel) 10/28/2022 Colorectal Cancer Screening: Colonoscopy 10/28/2022 Falls Risk Assessment 10/28/2022 Hepatitis C Screening 10/28/2022 Medicare Annual Wellness Visit 10/28/2022 Social Influencers of Health Screening 10/28/2022 Depression Screening 11/19/2024 COVID-19 Vaccine ( season) 2025 09/08/2023, 09/25/2022, 10/20/2021, Additional history exists Influenza Vaccine (#1) 2025 , 09/07/2022, 10/20/2021, Additional history exists Breast Cancer Screening 09/21/2025 09/21/20 23, 09/18/2022, 09/12/2021, Additional history exists Lung Cancer Screening (Low Dose CT) 12/19/2025 12/19/2024, 12/17/2023, 12/15/2023, Additional history exists RSV Immunization Adult Patients (1 - 1-dose 75+ series) 02/25/2028 Osteoporosis Screening (Bone Density Screening) 08/18/2029 08/18/2019 DTaP,Tdap,and Td Vaccines (3 - Td or Tdap) 10/23/2032 10/23/2022, 09/05/2012 Pneumococcal Vaccine: 50+ Years Completed 12/24/2019, 09/03/2018 HIB Vaccines Aged Out No longer eligi ble based on patient's age to complete this topic HPV Vaccines Aged Out No longer eligi ble based on patient's age to complete this topic Hepatitis A Vaccines Aged Out No long er eligible based on patient's age to complete this topic Hepatitis B Vaccines Aged Out No long er eligible based on patient's age to complete this topic IPV Vaccines Aged Out No longer eligi ble based on patient's age to complete this topic MMR Vaccines Aged Out No longer eligi ble based on patient's age to complete this topic Meningococcal ACWY Vaccine Aged Out N o longer eligible based on patient's age to complete this topic Meningococcal B Vaccine Aged Out No l onger eligible based on patient's age to complete this topic RSV Immunization Patients Under 20 months Aged Out No longer eligible based on patient's age to complete this topic Varicella Vaccines Aged Out No longer eligible based on patient's age to complete this topic Procedures Procedure Name Priority Date/Time Associated Diagnosis Comments CT LUNG SCREENING Routine 12/19/2024 7:4 2 AM EST Personal history of nicotine dependence Encounter for screening for malignant neoplasm of respiratory organs SCREENING MAMMOGRAPHY BI 2-VIEW BREAST INC CAD Routine 09/21/2023 10:32 AM EDT Encounter for screening mammogram for malignant neoplasm of breast DXA BONE DENSITY STUDY 1+ SITS AXIAL SKEL Routine 08/18/2019 10:14 AM EDT Other specified disorders of bone density and structure, unspecified site from Last 3 Months or Most Recently Relevant to Health Maintenance Results * CT Lung Screening (12/19/2024 7:42 AM EST) Anatomical Region Laterality Modality Chest Computed Tomogra phy 12/23/2024 1:10 PM EST Impressions 12/23/2024 1:34 PM EST No new or suspicious pulmonary nodules. Lung RADS 1-negative. Recommend continued screening with low-dose chest CT in 12 months. -------- FINAL REPORT -------- Dictated By: TOBY MAXWELL Dictated Date: 12/23/2024 13:10 ET Assigned Physician: TOBY MAXWELL Reviewed and Electronically Signed By: TOBY MAXWELL Signed Date: 12/23/2024 13:34 ET Workstation ID: [id number] Transcribed By: Self Edit Transcribed Date: 12/23/2024 13:10 ET Narrative 12/23/2024 1:34 PM EST PROCEDURE: Chest CT INDICATION: Lung cancer screening, former smoker, 56 pack year smoking history TECHNIQUE: Chest CT without contrast. Multi planar reformats were created and interpreted. The examination was performed utilizing dose reduction techniques. Total DLP 167 COMPARISON: 12/15/2023 FINDINGS: LUNGS/PLEURA: Central airways are patent. No new or suspicious pulmonary nodules. Elevated left diaphragm with left greater than right basilar atelectasis/scarring. No pleural effusion or pneumothorax. MEDIASTINUM: Thyroid gland is unchanged with peripherally calcified nodules on the right. No mediastinal or hilar lymphadenopathy. Small hiatal hernia. Mild coronary artery calcifications. Cardiac chambers are normal in size. No pericardial effusion. Ascending thoracic aorta measures 3.9 cm at the level of the right pulmonary artery CHEST WALL: No axillary lymphadenopathy or superficial hematoma. UPPER ABDOMEN:Cholecystectomy. Hepatic steatosis BONES: Chronic L1 fracture deformity. No acute fracture. Chronic T3 superior endplate compression deformity. Procedure Note Toby Maxwell MD - 12/23/2024 PROCEDURE: Chest CT INDICATION: Lung cancer screening, former smoker, 56 pack year smokinghistory TECHNIQUE: Chest CT without contrast. Multi planar reformats were createdand interpreted. The examination was performed utilizing dose reductiontechniques. Total DLP 167 COMPARISON: 12/15/2023 FINDINGS: LUNGS/PLEURA: Central airways are patent. No new or suspicious pulmonarynodules. Elevated left diaphragm with left greater than right basilaratelectasis/scarring. No pleural effusion or pneumothorax. MEDIASTINUM: Thyroid gland is unchanged with peripherally calcifiednodules on the right. No mediastinal or hilar lymphadenopathy. Smallhiatal hernia. Mild coronary artery calcifications. Cardiac chambers arenormal in size. No pericardial effusion. Ascending thoracic aortameasures 3.9 cm at the level of the right pulmonary artery CHEST WALL: No axillary lymphadenopathy or superficial hematoma. UPPER ABDOMEN:Cholecystectomy. Hepatic steatosis BONES: Chronic L1 fracture deformity. No acute fracture. Chronic [id number] endplate compression deformity. IMPRESSION: No new or suspicious pulmonary nodules. Lung RADS 1-negative. Recommendcontinued screening with low-dose chest CT in 12 months. -------- FINAL REPORT -------- Dictated By: TOBY MAXWELL Dictated Date: 12/23/2024 13:10 ET Assigned Physician: TOBY MAXWELL Reviewed and Electronically Signed By: TOBY MAXWELL Signed Date: 12/23/2024 13:34 ET Workstation ID: [id number] Transcribed By: Self Edit Transcribed Date: 12/23/2024 13:10 ET Toshia Lopez MD IMG CT PROCEDURES Final Result * SCREENING MAMMOGRAPHY BI 2-VIEW BREAST INC CAD (09/21/2023 10:32 AM EDT) Anatomical Region Laterality Modality Radiographic Damaris ging 09/18/2022 8:56 AM EDT Narrative 09/21/2023 2:10 PM EDT This is a summary report. The complete report is available in the patient's medical record. If you cannot access the medical record, please contact the sending organization for a detailed fax or copy. Full field digital screening tomosynthesis mammography, reviewed with CAD and compared to previous. The breast tissue is heterogeneously dense, limiting sensitivity. No suspicious mass, architectural distortion or suspicious calcifications are identified. IMPRESSION: : Dense breast tissue, limiting the sensitivity of mammography. No mammographic evidence of malignancy. BIRADS 1-Negative; N. 5 year breast cancer risk assessment N/A Lifetime breast cancer risk assessment N/A Breast cancer risk category Breast cancer risk not assessed Procedure Note Bonnie Zepeda MD - 12/24/2023 This is a summary report. The complete report is available in thepatient's medical record. If you cannot access the medical record, pleasecontact the sending organization for a detailed fax or copy. Full field digital screening tomosynthesis mammography, reviewed with CADand compared to previous. The breast tissue is heterogeneously dense,limiting sensitivity. No suspicious mass, architectural distortion orsuspicious calcifications are identified. IMPRESSION: : Dense breast tissue, limiting the sensitivity of mammography. Nomammographic evidence of malignancy. BIRADS 1-Negative; N. 5 year breast cancer risk assessment N/A Lifetime breast cancer risk assessment N/A Breast cancer risk category Breast cancer risk not assessed Jennifer VALLEJO IMG XR PROCEDURES Edited Resu lt - Final * DXA BONE DENSITY STUDY 1+ SITS AXIAL SKEL (08/18/2019 10:14 AM EDT) Anatomical Region Laterality Modality Bone Densitometr y 06/20/2019 9:35 AM EDT Narrative 08/20/2019 2:08 PM EDT BONE DENSITY Lumbar Spine T-score is -1.6 (SD relative to 20-29 y/o adult) Z-score is +0.2 (SD relative to age matched peers) This is consistent with osteopenia by criteria defined by the WHO. Left Hip T-score is -1.1 Z-score is +0.5 This is consistent with osteopenia by criteria defined by the WHO. Impression: Based on the World Health Organization criteria, Jenifer Dixon should be classified as having osteopenia. This patient has a 8.3% risk of major osteoporotic fracture and a 0.7% risk of hip fracture over the next 10 years. (World Health Organization Fracture Risk Assessment) [facility] Department of Internal Medicine recommends using National Osteoporosis Foundation (NOF) guidelines in treatment decisions related to osteoporosis. NOF guidelines suggest considering treatment for postmenopausal women and men aged 50 or older presenting with the following: History of hip or vertebral fracture. T-score less than or equal to -2.5 (DXA) at the femoral neck, total hip, or spine, after appropriate evaluation to exclude secondary causes. Low bone mass (T-score between -1.0 and -2.5 at the femoral neck or spine) AND a 10-year probability of a hip fracture greater than or equal to 3% OR a 10-year probability of a major osteoporosis-related fracture greater than or equal to 20% based on the [place]-adapted WHO algorithm Please note that all treatment decisions require clinical judgment and consideration of individual patient factors, including patient preferences, co-morbidities, previous drug use, risk factors not captured in the FRAX model (e.g., frailty, falls, vitamin D deficiency, increased bone turnover, interval significant decline in bone density) and possible under- or over-estimation of fracture risk by FRAX. Procedure Note Darius Garcia - 11/07/2022 BONE DENSITY Lumbar Spine T-score is -1.6 (SD relative to 20-29 y/o adult) Z-score is +0.2 (SD relative to age matched peers) This is consistent with osteopenia by criteria defined by the WHO. Left Hip T-score is -1.1 Z-score is +0.5 This is consistent with osteopenia by criteria defined by the WHO. Impression: Based on the World Health Organization criteria, Jenifer Dixon should beclassified as having osteopenia. This patient has a 8.3% risk of majorosteoporotic fracture and a 0.7% risk of hip fracture over the next 10years. (World Health Organization Fracture Risk Assessment) [facility] Department of Internal Medicine recommendsusing National Osteoporosis Foundation (NOF) guidelines in treatmentdecisions related to osteoporosis. NOF guidelines suggest consideringtreatment for postmenopausal women and men aged 50 or older presentingwith the following: History of hip or vertebral fracture. T-score less than or equal to -2.5 (DXA) at the femoral neck, total hip,or spine, after appropriate evaluation to exclude secondary causes. Low bone mass (T-score between -1.0 and -2.5 at the femoral neck or spine)AND a 10-year probability of a hip fracture greater than or equal to 3% ORa 10-year probability of a major osteoporosis-related fracture greaterthan or equal to 20% based on the [place]-adapted WHO algorithm Please note that all treatment decisions require clinical judgment andconsideration of individual patient factors, including patientpreferences, co-morbidities, previous drug use, risk factors not capturedin the FRAX model (e.g., frailty, falls, vitamin D deficiency, increasedbone turnover, interval significant decline in bone density) and possibleunder- or over-estimation of fracture risk by FRAX. Hanna Montgomery MD G DXA PROCEDURES Clara l Result from Last 3 Months or Most Recently Relevant to Health Maintenance Insurance MEDICARE [facility] Care Teams Electron Beam Photo Mask Technician Relationship Specialty Start Date End Date Kym Peña MD PCP - General Internal Medicine 09/18/22
--- OUTSIDE RECORDS SUMMARY | 2025-07-24 12:50 | XMS_ITS ---
Author Name [facility] Organization Unknown Care Team Organization Name Specialty Phone Email Start Date End Da te [facility] Shelbie Sanabria Primary [facility] 09/26/2022 07/07/2024
--- OUTSIDE RECORDS SUMMARY | 2025-07-24 12:50 | XMS_ITS | Clinical Summary ---
Author Organization [facility] Address [address] [place] [address] Care Team Providers Care Customer Training Specialist Name Role Phone Hanna Montgomery MD Primary Care Provider Allergies Active Allergy Reactions Criticality Noted Date Comments Fluconazole 06/01/2021 Latex Dermatitis,Rash Low 06/01/2021 Phenazopyridine Nausea And Vomiting 06/01/2021 Medications Medication Sig Dispensed Refills Start Date End Date Status levothyroxine (SYNTHROID) tablet 150 mcg Take 150 mcg by mouth every morning on an empty stomach. 0 Active atorvastatin (LIPITOR) tablet 10 mg Take 10 mg by mouth every evening. 0 Active rivaroxaban (Xarelto) 10 MG tablet Take 10 mg by mouth daily. 0 Active cetirizine (ZyrTEC) 10 MG tablet Take 10 mg by mouth daily. 0 Active vitamin D3 (VITAMIN D3) 25 MCG (1000 UT) tablet Take 1,000 Units by mouth daily. 0 Active [place]-3 Fatty Acids (Fish Oil) 1000 MG CAPS Take 1 tablet by mouth 2 (two) times a day. 0 Active Active Problems No known active problems Family History Medical History Relation Name Comments Cancer Father Relation Name Status Comments Father Social History Tobacco Use Types Packs/Day Years Used Date Smoking Tobacco: Former Cigarettes Q uit: 09/17/2011 Smokeless Tobacco: Never Alcohol Use Standard Drinks/Week Comments Yes 0 (1 standard drink = 0.6 oz pur e alcohol) occasionally Sex and Gender Information Value Date Recorded Sex Assigned at Not on file Gender Identity Not on file Sexual Orientation Not on file Last Filed Vital Signs Vital Sign Reading Time Taken Comments Blood Pressure 129/86 06/02/2021 10:41 AM EDT Pulse 82 06/02/2021 10:41 AM EDT Temperature 36.2 C (97.1 F) 06/02/2021 10:41 AM EDT Respiratory Rate - - Oxygen Saturation 98% 06/02/2021 10:41 AM EDT Inhaled Oxygen Concentration - - Weight 75.8 kg (167 lb) 06/02/2021 10:41 AM EDT Height 154.9 cm (5' 1 ) 06/02/2021 10:41 AM EDT Body Mass Index 31.55 06/02/2021 10:41 AM EDT Plan of Treatment Health Maintenance Due Date Last Done Comments Hepatitis C Screening 1953 Depression Screening 1965 Preventative Health Evaluation 1971 Colon Cancer Screening (Colonoscopy) 1998 Breast Cancer Screening (Mammogram) 2003 Shingrix-Zoster Vaccine (1 of 2) 2003 Fall Risk Assessment 2018 Osteoporosis Screening (DEXA Scan) 2018 DTap / Tdap / Td (2 - Td or Tdap) 09/05/2022 09/05/2012 COVID-19 Vaccine ( season) 2025 03/10/2021, 02/15/2021 Influenza Vaccine (#1) 2025 , 09/03/2018, 09/10/2017, Additional history exists RSV Adult > 60+ Yrs or (1 - 1-dose 75+ series) 02/25/2028 Pneumococcal Vaccine Completed 12/24/2019, 09/03/20 18 Hepatitis B Vaccines Aged Out No long er eligible based on patient's age to complete this topic RSV Ped < 20 months Aged Out No longe r eligible based on patient's age to complete this topic Care Teams Customer Training Specialist Relationship Specialty Start Date End Date Hanna Montgomery MD PCP - General Internal Medicine 06/02/21
--- NOTE | 2025-07-24 14:45 | MHC.PC.OV ---
Vital Signs 07/24/25 12:26 Height 5 ft Weight 177 lb 6 oz BMI 34.6 BP 142/76 H Blood Pressure Location Rt brachial Position Sitting Respiration 12 Pulse 95 Pulse Source Pulse Oximeter Temp 97.8 F Temp Source Oral Pulse Oximetry (%) 98 Oxygen Delivery Method Room Air Intake Visit Reasons: Headache, pressure, earaches, both ears clogged. Allergies phenazopyridine (From Pyridium) Allergy (Verified 07/24/25 12:24) Unknown latex Allergy (Mild, Uncoded 07/24/25 12:24) rash Medication List - Last Reconciled 07/24/25 by Melody March, [employer] atorvastatin 10 mg PO BEDTIME cetirizine (Zyrtec) 10 mg PO DAILY PRN rivaroxaban (Xarelto) 10 mg PO DAILY Synthroid (levothyroxine) 137 mcg PO DAILY NS Tobacco use date assessed: 02/12/25 Dental Screening Dental Screen Date: 02/12/25 HPI HPI Comments History of Present Illness Details 70 year-old female with hyperlipidemia, hypothyroidism, DVT of the lower extremity, aneurysm of the ascending aorta, osteopenia and obesity presenting with sinus pressure, difficulty hearing and chest pain. - Intermittent chest pain related to a known thoracic aortic aneurysm. Reports this is chronic and intermittent. 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 She had an echocardiogram which showed trace aortic valve regurgitation. She was instructed to follow up in 1 year. She denies chest pain, shortness of breath, syncope or dizziness. She had an ultrasound of the abdominal aorta which was normal in 02/05/2021. She had an unremarkable nuclear stress test. Patient requests referral back to Cardiology so they can schedule her follow up for 2024. She reports being ff'd by Dr Arteaga. Next appt 09/2025. - Recent shortness of breath with onset within the past couple of weeks. - Denies cough, asthma, and COPD. - Head symptoms including sinus pressure and ear fullness preceded other symptoms. - Sinus congestion began 2-3 weeks ago, treated unsuccessfully with OTC medications. - Denies dizziness or weakness, aside from head symptoms. Review of Systems - Respiratory: Reports chest pain; denies cough. - Cardiac: Reports chest pain. - ENT: Reports sinus congestion, facial pressure, and ear fluid sensation. - General: Reports shortness of breath. - Neurological: Denies dizziness and weakness. Physical Exam General: Awake, alert, no apparent distress Eyes: Sclera and conjunctiva clear bilaterally Ears: TM with mucoid effusions bilat Nose: turbinates pale and edematous, frontal and maxillary sinus tenderness bilat Throat: Moist mucosa membrane, pharynx within normal limits Cardiovascular: Regular rate and rhythm Respiratory: Clear to auscultation bilaterally Results CXR - See below. Stable. Discussion Notes I discussed with the patient the diagnosis of sinusitis and a known thoracic aortic aneurysm. Given her c/o chest pain recommended EKG. Declined, stating this is normal for her. To treat her sinus infection, I recommended starting Augmentin. We talked about the necessity of following up with a chest x-ray, particularly to evaluate the thoracic aortic aneurysm for any potential changes such as widening or leakage and to r/o PNA given c/o SOB. I encouraged completing this test today. I advised the continuation of usual medications and to notify us if there is no improvement after completing the antibiotic course. Patient was given time to ask questions. All questions were answered to their satisfaction. Assessment and Plan 1. Sinusitis/ETD - Augmentin prescribed for 7 days. - Monitor symptom resolution. 2. Thoracic Aortic Aneurysm/Chest pain - Recommend chest x-ray. Results appear stable. - Declined EKG - FU with Cards and PCP as scheduled. 3. Shortness of Breath - Monitor for resolution. Patient Instructions - Take Augmentin as prescribed, with food to prevent stomach upset. - Go for chest x-ray either today - results sent to her via portal - If symptoms persist after antibiotics, send a portal message. - Rest and stay indoors when feeling unwell. - Contact us if symptoms worsen. - ED edu provided. Consent Patient was informed and verbally consented to the use of an ambient scribe for clinic note documentation during this visit. Total time spent caring for the patient today was 30 minutes. This includes time spent before the visit reviewing the chart, time spent during the visit, and time spent after the visit on documentation, reviewing laboratory results, diagnostic imaging, medications, performing a medically necessary evaluation, counseling on diagnoses, care coordination, ordering appropriate tests, ordering appropriate medications, review of tests performed by other providers, reporting test results with the patient, communication with other healthcare providers. FOR[facility] Medical History (Updated 07/24/25 @ 14:46 by Melody March, [facility]) Anxiety Colon polyps Deep vein thrombosis, lower left extremity Eczema FH: cholecystectomy High cholesterol History of aneurysm History of blood clots Hypothyroidism Osteopenia Psoriasis Pure hypercholesterolemia Sinusitis Thoracic aortic aneurysm (TAA) Thyroid disease Surgical History H/O: hysterectomy Family History Mother Clotting disorder Father Cancer Social History Housing: House Patient Tobacco Use Status: Never used Tobacco e-Cigarette/Vaping Use: Never Used Second Hand Smoke Exposure: No service: No Current occupational status: retired Current occupational exposures/hazards: No Cognitive needs: No Hearing needs: No Vision needs: No Questionnaire Thrive Questionnaire Date Thrive assessed: 02/09/25 I am a: Patient What is your living situation today?: I have a steady place to live Within the past 12 months, did the food you bought not last and you didn't have the money to get more?: Never true Within the past 12 months, did you worry whether your food would run out before you got money to buy more?: Never true Do you have trouble paying for medicines?: No Do you have trouble getting transportation to medical appointments?: No Do you have trouble paying your heating and electricity bill?: No Do you have trouble taking care of your child, family member or friend?: No Do you have trouble with day-to-day activities such as bathing, preparing meals, shopping, managing finances, etc.?: No Are you currently unemployed and looking for a job?: No Are you interested in more education?: No Please select the resources that you would like help with: None Currently or been in a relationship where the following occur: No concerns reported THRIVE Score: 0 BROOK-7 AMB Questionnaire BROOK-7 Date BROOK - 7 assessed: 02/12/25 Source: Developed by Drs. Ham Rodriguez, Wendy Garcia, Saeed Ariza and colleagues, with an educational natividad from [employer]. Physical exam (Primary Care) Vital Signs: Last Vital Signs Temp 97.8 F 07/24/25 12:26 Pulse 95 07/24/25 12:26 Resp 12 07/24/25 12:26 BP 142/76 H 07/24/25 12:26 Pulse Ox 98 07/24/25 12:26 Oxygen Delivery Method Room Air 07/24/25 12:26 BMI result Body Mass Index 34.6 BMI Assessment/Plan discussion: High BMI High, discussed plan: lifestyle Tobacco/Smoking Status: Tobacco use Status Tobacco use date assessed 02/12/25 02/12/25 09:00 Patient Tobacco Use Status Never used Tobacco 02/12/25 09:00 e-Cigarette/Vaping Use Never Used 02/12/25 09:00 Thrive Assessment: Date of Thrive Assessment Date Thrive assessed 02/09/25 07/24/25 12:22 Currently or been in a relationship where the following occur: No concerns reported Results Reviewed Results Reviewed: Ordering Physician: Melody March Date of Service: 07/24/25 Procedure(s): XR chest 2V Accession Number(s): [id number] cc: Jennifer Krishnamurthy; Melody March~ Reason for Exam: I71.21 - Aneurysm of the ascending aorta, without rupture EXAMINATION: XR CHEST CLINICAL INFORMATION: I71.21 - Aneurysm of the ascending aorta, without rupture COMPARISON: None available. TECHNIQUE: 2 views of the chest were obtained. FINDINGS: The cardiac, hilar, and mediastinal contours are normal. Aortic mural calcification and tortuosity.1 Lungs demonstrate linear atelectasis or scarring in both lung bases. Lungs otherwise clear. No consolidation. There is no pneumothorax or pleural effusion. There is no focal osseous or soft tissue abnormality. There are cholecystectomy clips present. XR/XR chest 2V IMPRESSION: 1. No active pulmonary disease. 2. Marked tortuosity of the thoracic aorta with associated mural calcifications. Electronically signed by: Kayden Damico MD 07/24/2025 01:41 PM EDT RP Coding Level of Care Code Est Pt Level 4 (27298) Complex EM visit Add On G2211 Diagnoses Aneurysm of ascending aorta without rupture I71.21 Thoracic aorta location: ascending aorta Presence of rupture: without rupture Acute bacterial sinusitis J01.90; B96.89 Obesity (BMI 30-39.9) E66.9 Assessment & Plan Assessment & Plan (1) Thoracic aortic aneurysm (TAA): Code(s): I71.20 - Thoracic aortic aneurysm, without rupture, unspecified Category: Medical Qualifiers: Thoracic aorta location: ascending aorta Presence of rupture: without rupture Qualified Code(s): I71.21 - Aneurysm of the ascending aorta, without rupture (2) Acute bacterial sinusitis: Code(s): J01.90 - Acute sinusitis, unspecified; B96.89 - Other specified bacterial agents as the cause of diseases classified elsewhere (3) Obesity (BMI 30-39.9): Code(s): E66.9 - Obesity, unspecified Category: Medical Plan . Orders: Orders XR chest 2V Today I71.21 - Aneurysm of the ascending aorta, without rupture Medications: New amoxicillin-pot clavulanate 875-125 mg 1 tab PO BID 14 tabs 0RF 7 days
== END 2025-07-24 14:57 | disposition home or self-care (01) ==
LOC: HO.HMCFM 12:22
PROVIDERS: PCP Physician Assistant Medical; Visit Provider Nurse Practitioner Family
DX: J01.90 Acute sinusitis, unspecified (principal); E66.9 Obesity, unspecified; Z68.34 Body mass index [BMI] 34.0-34.9, adult; I71.21 Aneurysm of the ascending aorta, without rupture; B96.89 Other specified bacterial agents as the cause of diseases classified elsewhere

== ENCOUNTER 2025-07-24 12:21 | Outpatient (REF) | payer MEDICARE, OTHER, SELFPAY ==
--- NOTE | ~2025-07-24 | XR_ITS ---
EXAMINATION: XR CHEST CLINICAL INFORMATION: I71.21 - Aneurysm of the ascending aorta, without rupture COMPARISON: None available. TECHNIQUE: 2 views of the chest were obtained. FINDINGS: The cardiac, hilar, and mediastinal contours are normal. Aortic mural calcification and tortuosity.1 Lungs demonstrate linear atelectasis or scarring in both lung bases. Lungs otherwise clear. No consolidation. There is no pneumothorax or pleural effusion. There is no focal osseous or soft tissue abnormality. There are cholecystectomy clips present. XR/XR chest 2V IMPRESSION: 1. No active pulmonary disease. 2. Marked tortuosity of the thoracic aorta with associated mural calcifications. Electronically signed by: Kayden Damico MD 07/24/2025 01:41 PM EDT RP
== END 2025-07-24 12:22 | disposition home or self-care (01) ==
LOC: HO.HMGCX 12:21
PROVIDERS: PCP Physician Assistant Medical; Visit Provider Nurse Practitioner Family
DX: I71.21 Aneurysm of the ascending aorta, without rupture (principal); J01.90 Acute sinusitis, unspecified; B96.89 Other specified bacterial agents as the cause of diseases classified elsewhere; E66.9 Obesity, unspecified; Z68.34 Body mass index [BMI] 34.0-34.9, adult; Z79.01 Long term (current) use of anticoagulants; Z79.899 Other long term (current) drug therapy
CPT/HCPCS: 71046; 99212

== ENCOUNTER → 2025-07-24 13:29 | Outpatient (BNV) | payer MEDICARE, OTHER, SELFPAY | PROVIDERS: PCP Physician Assistant Medical; Visit Provider Radiology Diagnostic Radiology | DX: I70.0 Atherosclerosis of aorta (principal) | CPT/HCPCS: 71046 ==

== ENCOUNTER 2025-08-03 10:11 | Outpatient (REF) | payer MEDICARE, OTHER, SELFPAY ==
[2025-08-03 11:29] LABS: Hematocrit 44.9 % (37.0-47.0); Hemoglobin 14.7 g/dl (12.0-16.0); Mean Corpuscular HGB Conc 32.7 g/dl (31.0-35.0); Mean Corpuscular Hemoglobin 30.4 pg (27.0-33.0); Mean Corpuscular Volume 92.8 fL (80.0-98.0); NRBC Abs Auto 0.000 X10*3/uL (0.0-0.012); NRBC Pct Auto 0.0 /100WBC (0.0-0.2); Platelet Count 209 X10*3/uL (160-400); Red Blood Count 4.84 X10*6/uL (4.20-5.50); White Blood Count 5.0 X10*3/uL (4.8-10.8)
[2025-08-03 12:24] LABS: Alanine Aminotransferase 685 U/L (0-31); Albumin Level 4.5 g/dL (3.5-5.0); Alkaline Phosphatase 139 U/L (39-117); Anion Gap 11 (12-20); Aspartate Amino Transferase 208 U/L (5-31); Blood Urea Nitrogen 14 mg/dL (9-16); Calcium 9.7 mg/dL (8.4-10.2); Carbon Dioxide 28 mmol/L (22-29); Chloride 105 mmol/L (96-108); Cholesterol 164 mg/dL (<200); Estimated Glomerular Filt Rate > 60; HDL Cholesterol 50 mg/dL (>40); Potassium 4.3 mmol/L (3.3-5.1); Sodium 140 mmol/L (135-145); Total Protein 7.3 g/dL (6.5-8.0); Triglycerides 153 mg/dL (<150)
--- OUTSIDE RECORDS SUMMARY | 2025-08-03 12:51 | XMS_ITS | Clinical Summary ---
Author Organization [facility] Address [address] [place] [address] Care Team Providers Care Lunchroom Mother Name Role Phone Hanna Montgomery MD Primary [...] 1,000 Units by mouth daily. 0 Active [place]-3 Fatty Acids (Fish Oil) 1000 MG CAPS [...] age to complete this topic Care Teams Lunchroom Mother Relationship Specialty Start Date End Date Hanna Montgomery MD PCP - General Internal Medicine 06/02/21
--- OUTSIDE RECORDS SUMMARY | 2025-08-03 12:51 | XMS_ITS | Clinical Summary ---
Author Organization [facility] [address] [facility] Address [address] [place] [address] Phone Care Team Providers Care Precision Honer Name Role Phone Kym Peña MD Primary Care Provider [phone] Immunizations Name Administration Dates Next Due Pfizer SARS-CoV-2 COVID-19, mRNA, LNP-S, preservative free 03/10/2021,02/15/2021 Surgical History Surgery Date Site/Laterality Comments SECTION PROCEDURE: [facility] DELIVERY ONLY TONSILLECTOMY PROCEDURE: HISTORICAL TONSILLECTOMY TUBAL LIGATION PROCEDURE: HISTORICAL TUBAL LIGATION OTHER SURGICAL HISTORY PROCEDURE: NH TOT ABD HYST W/WO RMVL TUBE OVARY [...] aortic ane urysm Paternal Grandfather (Age 65) [place] Sister 1 Alive healthy Sister 2 Alive [...] Signed Date: 12/23/2024 13:34 ET Workstation ID: [id number] Transcribed By: Self Edit Transcribed Date: 12/23/2024 [...] L1 fracture deformity. No acute fracture. Chronic [id number] endplate compression deformity. IMPRESSION: No new or suspicious pulmonary nodules. Lung RADS 1-negative. Recommendcontinued screening with low-dose chest CT in 12 months. -------- FINAL REPORT -------- Dictated By: TOBY MAXWELL Dictated Date: 12/23/2024 13:10 ET Assigned Physician: TOBY MAXWELL Reviewed and Electronically Signed By: TOBY MAXWELL Signed Date: 12/23/2024 13:34 ET Workstation ID: [id number] Transcribed By: Self Edit Transcribed Date: 12/23/2024 [...] (World Health Organization Fracture Risk Assessment) [facility] Department of Internal Medicine recommends using National [...] (World Health Organization Fracture Risk Assessment) [facility] Department of Internal Medicine recommendsusing National Osteoporosis [...] Recently Relevant to Health Maintenance Insurance MEDICARE [facility] Care Teams Precision Honer Relationship Specialty Start Date End Date Kym Peña MD PCP - General Internal Medicine 09/18/22
[2025-08-10 14:38] LABS: Vitamin D 25-OH, D2 <4 ng/mL; Vitamin D 25-OH, D3 25 ng/mL; Vitamin D 25-OH, Total 25 ng/mL (30-100)
== END 2025-08-03 10:12 | disposition home or self-care (01) ==
LOC: HO.WFDLDS 10:11
PROVIDERS: Visit Provider Physician Assistant Medical
DX: I82.402 Acute embolism and thrombosis of unspecified deep veins of left lower extremity (principal); E78.00 Pure hypercholesterolemia, unspecified; E03.9 Hypothyroidism, unspecified; M85.80 Other specified disorders of bone density and structure, unspecified site
CPT/HCPCS: 36415; 80053; 80061; 82306; 84443; 85027

== ENCOUNTER 2025-08-10 08:57 | Outpatient (AMB) | payer MEDICARE, OTHER, SELFPAY ==
--- NOTE | 2025-08-10 08:59 | MHC.PC.OV ---
Vital Signs 08/10/25 09:03 Height 5 ft Weight 173 lb 2 oz BMI 33.8 BP 122/78 Blood Pressure Location Rt brachial Position Sitting Respiration 12 Pulse 81 Pulse Source Pulse Oximeter Temp 97.2 F Temp Source Temporal Artery Scan Pulse Oximetry (%) 94 Oxygen Delivery Method Room Air Intake Visit Reasons: follow up Intake Note: Jenifer presents in the office for a follow up to her labs. Patient had ER visit 08/03/2025. Allergies phenazopyridine (From Pyridium) Allergy (Verified 08/10/25 09:01) Unknown latex Allergy (Mild, Uncoded 08/10/25 09:01) rash Medication List - Last Reconciled 08/10/25 by YONI Borges atorvastatin 10 mg PO BEDTIME carbamide peroxide 6.5% (Debrox) 5 drps otic (ears) DAILY 4 days cetirizine (Zyrtec) 10 mg PO DAILY PRN rivaroxaban (Xarelto) 10 mg PO DAILY Synthroid (levothyroxine) 137 mcg PO DAILY NS Tobacco use date assessed: 08/10/25 Fall risk assessment: No Falls in past year Last assessed Fall Risk: 08/10/25 Dental Screening Dental Screen Date: 08/10/25 Did you have a dental visit in the last 12 months?: No Did you have a dental problem in the last 6 months where you did not have access to dental care?: No Was dental information given to patient?: Patient declined HPI HPI Comments History of Present Illness Details This is a 69-year-old female with a history of hyperlipidemia, hypothyroidism, DVT of the lower extremity, aneurysm of the ascending aorta, osteopenia and obesity presenting for ER follow up. Patient presented to the walk-in on 07/24/2025 with sinus pressure, difficulty hearing and chest pain. Patient described shortness of breath with onset the past couple of weeks. She reported sinus congestion for 2-3 weeks. On physical exam it was noted that her turbinates were pale and edematous and she had bilateral TM effusions and sinus tenderness. She was placed on Augmentin for 7 days. Chest x-ray was ordered which was negative. She declined EKG in the office. She had blood work done that I had ordered routinely on 08/03/2025 demonstrating a normal CBC, renal function, glucose, TSH and markedly elevated AST, ALT and alkaline phosphatase at 208, 685 and 139 respectively. Patient has no history of liver disease, and her liver function tests were normal in August of 2024. She does not drink any alcohol. I contacted her, and she reported feeling fatigued for about a month and having intermittent pain in her upper abdomen radiating to her back. She was therefore sent to the emergency department so she went to [facility] that day. She reported having shortness of breath throughout the summer to the provider. EKG was nonischemic. Labs at ED demonstrated alkaline phosphatase 136, AST 121, ALT 453. She had a CTA of the chest which revealed no pulmonary embolism and the aortic aneurysm was unchanged from prior imaging. Small type 1 hiatal hernia noted. Mildly elevated left hemidiaphragm. Simple appearing renal cysts and hypodensities too small to characterize. Small fat containing umbilical hernia. Degenerative disc disease in the lower spine. She takes Tylenol occasionally for headaches. She never takes more than the recommended amount. She reports that her ears still feel blocked, and her head feels like she is foggy. She has a remote history of cholecystectomy. Hyperlipidemia taking atorvastatin 10 mg at bedtime. LDL cholesterol is 84. She has been on this medication for years. There was no dose change recently. Hypothyroidism-taking Synthroid 137 mcg once daily. TSH normal. History of ascending aortic aneurysm-patient reports she saw her director [facility] in 2023. She had an echocardiogram which showed trace aortic valve regurgitation. She was instructed to follow up in 1 year. She had an ultrasound of the abdominal aorta which was normal in 02/05/2021. She had an unremarkable nuclear stress test. She has an appointment with her director [facility] at [facility] in September. Left lower extremity DVT-previously reviewed notes from Hematology consult from 06/16/2021. She suffered a DVT without provoking factor in 2018. She was initially treated with warfarin and is now on Xarelto. She has no bleeding or complications or recurrent thrombosis. Notes indicate thrombophilia workup was done. Shared decision to continue anticoagulation due to risk of recurrence off anticoagulation. Osteopenia-calcium and vitamin-D supplementation. She had a colonoscopy in 07/08/2023, and it was recommended to repeat it in 5 years for precancerous polyps. ROS: Constitutional: No unexplained weight loss, fever, chills, or night sweats. +fatigue. Eyes: No vision changes, blurry vision, double vision, eye pain, eye redness, eye discharge. ENT: Endorses muffled hearing bilaterally and blocked ears. Denies ear pain. Denies sinus pain, congestion, sore throat. Respiratory: See HPI. No cough, hemoptysis, wheezing or sputum production. Cardiovascular: No chest pain, chest pressure or chest discomfort. No palpitations or pedal edema. Gastrointestinal: No anorexia, nausea, vomiting or diarrhea. Intermittent right upper abdominal pain described as mild. No blood in stools. Genitourinary: No dysuria, hematuria, urinary frequency. Neurologic: No headache, dizziness, syncope, unilateral weakness, ataxia, numbness or tingling in the extremities. Musculoskeletal: No joint pain or joint swelling Hematologic/Lymphatics: No bleeding or bruising. No painful lymph nodes. Skin: No rash or itching. Denies discoloration. Physical exam: Constitutional: Alert, in no distress. Head: Normocephalic. Eyes: Pupils are equal, round and reactive to light. Extraocular muscles intact. Anicteric. Ear, Nose and Throat: I could not visualize the TMs due to dry skin and wax occluding the canals. Mastoids nontender. Negative tug test bilaterally. Normal nasal mucosa. No nasal discharge. Sinuses nontender. No oral lesions. No erythema or exudates in the throat. Neck: Supple, Full range of motion. No lymphadenopathy. No palpable thyroid masses. Respiratory: Clear to auscultation. Cardiovascular: S1 S2 regular. No murmurs. Gastrointestinal: Abdomen soft, mild tenderness in the right upper quadrant, non-distended. Normal bowel sounds. No palpable masses. No rebound or guarding. Genitourinary: No costovertebral angle tenderness. Neurologic: No focal neurological deficits. Skin: No rashes or jaundice. Extremities: Warm and well perfused. No clubbing, cyanosis or edema. Psychiatric: Normal mood and affect [facility] Medical History (Updated 08/10/25 @ 09:55 by YONI Borges) Fatigue Impacted cerumen, bilateral Transaminitis Anxiety Osteopenia Thoracic aortic aneurysm (TAA) Deep vein thrombosis, lower left extremity Colon polyps Pure hypercholesterolemia Hypothyroidism Psoriasis Eczema Thyroid disease History of aneurysm History of blood clots High cholesterol Sinusitis FH: cholecystectomy Surgical History H/O: hysterectomy Family History Mother Clotting disorder Father Cancer Social History (Updated 08/10/25 @ 09:03 by Bettie Larsen CMA) Housing: House Alcohol intake: never Patient Tobacco Use Status: Never used Tobacco e-Cigarette/Vaping Use: Never Used Second Hand Smoke Exposure: No Use of substances other than those prescribed or required for medical reasons: No service: No Current occupational status: retired Current occupational exposures/hazards: No Cognitive needs: No Hearing needs: No Vision needs: No Questionnaire Thrive Questionnaire Date Thrive assessed: 02/09/25 BROOK-7 AMB Questionnaire BROOK-7 Date BROOK - 7 assessed: 02/12/25 Source: Developed by Drs. Ham Rodriguez, Wendy Garcia, Saeed Ariza and colleagues, with an educational natividad from ?. Physical exam (Primary Care) Vital Signs: Last Vital Signs Temp 97.2 F 08/10/25 09:03 Pulse 81 08/10/25 09:03 Resp 12 08/10/25 09:03 BP 122/78 08/10/25 09:03 Pulse Ox 94 08/10/25 09:03 Oxygen Delivery Method Room Air 08/10/25 09:03 BMI result Body Mass Index 33.8 Tobacco/Smoking Status: Tobacco use Status Tobacco use date assessed 08/10/25 08/10/25 09:03 Patient Tobacco Use Status Never used Tobacco 08/10/25 09:03 e-Cigarette/Vaping Use Never Used 08/10/25 09:03 Thrive Assessment: Date of Thrive Assessment Date Thrive assessed 02/09/25 08/10/25 08:59 Coding Level of Care Code Est Pt Level 4 (61604) Complex EM visit Add On G2211 Diagnoses Transaminitis R74.01 Impacted cerumen, bilateral H61.23 Aneurysm of ascending aorta without rupture I71.21 Thoracic aorta location: ascending aorta Presence of rupture: without rupture Pure hypercholesterolemia E78.00 Deep vein thrombosis, lower left extremity I82.402 Chronicity: unspecified Other specified hypothyroidism E03.8 Hypothyroidism type: other Chronic fatigue R53.82 Fatigue type: chronic, unspecified Assessment & Plan Assessment & Plan (1) Transaminitis: Code(s): R74.01 - Elevation of levels of liver transaminase levels Category: Medical Plan: Unclear etiology. No findings on CT at the ED to explain symptoms. I have ordered testing for hepatitis a, B and C, tick-borne illnesses and mononucleosis given recent congested and walk-in visit. Repeat LFTs today. Patient has already reached out to the Gastroenterology office at [facility], and they are going to call her tomorrow to book an appointment. I will touch base with her about this once I have her results back. Avoid alcohol. Avoid acetaminophen at this time. She will hold her statin for now as well. (2) Impacted cerumen, bilateral: Code(s): H61.23 - Impacted cerumen, bilateral Category: Medical Plan: Used Debrox drops for 4 days and return for ear flushing. (3) Thoracic aortic aneurysm (TAA): Code(s): I71.20 - Thoracic aortic aneurysm, without rupture, unspecified Category: Medical Qualifiers: Thoracic aorta location: ascending aorta Presence of rupture: without rupture Qualified Code(s): I71.21 - Aneurysm of the ascending aorta, without rupture Plan: Stable on CTA. She has a follow up scheduled with her director [facility] in September. (4) Pure hypercholesterolemia: Code(s): E78.00 - Pure hypercholesterolemia, unspecified Category: Medical Plan: Patient will stop her statin at this time. Start Mediterranean diet. Increase fiber. (5) Deep vein thrombosis, lower left extremity: Code(s): I82.402 - Acute embolism and thrombosis of unspecified deep veins of left lower extremity Category: Medical Qualifiers: Chronicity: unspecified Plan: Continue Xarelto. (6) Hypothyroidism: Code(s): E03.9 - Hypothyroidism, unspecified Category: Medical Qualifiers: Hypothyroidism type: other Qualified Code(s): E03.8 - Other specified hypothyroidism Plan: Continue levothyroxine. (7) Fatigue: Code(s): R53.83 - Other fatigue Category: Medical Qualifiers: Fatigue type: chronic, unspecified Qualified Code(s): R53.82 - Chronic fatigue, unspecified Plan: See lab list below for further evaluation. Plan Follow up in 8 weeks. Orders: Orders Tick-borne Disease Molecular Today R74.01 - Elevation of levels of liver transaminase levels Lyme IgG/IgM w/reflex to WB Today R74.01 - Elevation of levels of liver transaminase levels Monotest Today R74. - Elevation of levels of liver transaminase levels Liver Panel Today R74. - Elevation of levels of liver transaminase levels Hepatitis A IgM Today R74. - Elevation of levels of liver transaminase levels Hepatitis A,B,C Profile Today R7. - Elevation of levels of liver transaminase levels Fredi-Humphrey Virus Profile Today R74. - Elevation of levels of liver transaminase levels Medications: New carbamide peroxide 6.5% (Debrox) 5 drps otic (ears) DAILY 15 mL 0RF 4 days
[2025-08-10 09:03] VITALS: BP 122/78; PULSE 81; RESP 12; TEMP 36.2; O2SAT 94; BMI 33.8
--- OUTSIDE RECORDS SUMMARY | 2025-08-10 10:27 | XMS_ITS | Clinical Summary ---
Author Organization [facility] Address [address] [place] [address] Care Team Providers Care Supervisor Lead Refinery Name Role Phone Hanna Montgomery MD Primary [...] 1,000 Units by mouth daily. 0 Active Holder-3 Fatty Acids (Fish Oil) 1000 MG CAPS [...] age to complete this topic Care Teams Supervisor Lead Refinery Relationship Specialty Start Date End Date Hanna Montgomery MD PCP - General Internal Medicine 06/02/21
--- OUTSIDE RECORDS SUMMARY | 2025-08-10 10:27 | XMS_ITS | Clinical Summary ---
Author Organization [facility] [address] [facility] Address [address] [place] [address] Phone Care Team Providers Care Sports Recruiter Name Role Phone Kym Peña MD Primary Care Provider Immunizations Name Administration Dates Next Due Pfizer SARS-CoV-2 COVID-19, mRNA, LNP-S, preservative free 03/10/2021,02/15/2021 Surgical History Surgery Date Site/Laterality Comments SECTION PROCEDURE: CO DELIVERY ONLY TONSILLECTOMY PROCEDURE: HISTORICAL TONSILLECTOMY TUBAL LIGATION PROCEDURE: HISTORICAL TUBAL LIGATION OTHER SURGICAL HISTORY PROCEDURE: CO TOT ABD HYST W/WO RMVL TUBE OVARY [...] aortic ane urysm Paternal Grandfather (Age 65) [place] Sister 1 Alive healthy Sister 2 Alive [...] Signed Date: 12/23/2024 13:34 ET Workstation ID: [id number] Transcribed By: Self Edit Transcribed Date: 12/23/2024 [...] L1 fracture deformity. No acute fracture. Chronic [id number] endplate compression deformity. IMPRESSION: No new or suspicious pulmonary nodules. Lung RADS 1-negative. Recommendcontinued screening with low-dose chest CT in 12 months. -------- FINAL REPORT -------- Dictated By: TOBY MAXWELL Dictated Date: 12/23/2024 13:10 ET Assigned Physician: TOBY MAXWELL Reviewed and Electronically Signed By: TOBY MAXWELL Signed Date: 12/23/2024 13:34 ET Workstation ID: [id number] Transcribed By: Self Edit Transcribed Date: 12/23/2024 [...] (World Health Organization Fracture Risk Assessment) [facility] Department of Internal Medicine recommends using [...] (World Health Organization Fracture Risk Assessment) [facility] Department of Internal Medicine recommendsusing National [...] Recently Relevant to Health Maintenance Insurance MEDICARE [facility] Care Teams Sports Recruiter Relationship Specialty Start Date End Date Kym Peña MD PCP - General Internal Medicine 09/18/22
== END 2025-08-10 09:44 | disposition home or self-care (01) ==
LOC: HO.HMCFM 08:57
PROVIDERS: PCP Physician Assistant Medical; Visit Provider Physician Assistant Medical
DX: R74.01 Elevation of levels of liver transaminase levels (principal); I82.402 Acute embolism and thrombosis of unspecified deep veins of left lower extremity; H61.23 Impacted cerumen, bilateral; I71.21 Aneurysm of the ascending aorta, without rupture; E78.00 Pure hypercholesterolemia, unspecified; E03.8 Other specified hypothyroidism; R53.82 Chronic fatigue, unspecified

== ENCOUNTER 2025-08-10 08:57 | Outpatient (REF) | payer MEDICARE, OTHER, SELFPAY ==
[2025-08-10 12:06] LABS: Alanine Aminotransferase 132 U/L (0-31); Albumin Level 4.9 g/dL (3.5-5.0); Alkaline Phosphatase 100 U/L (39-117); Aspartate Amino Transferase 32 U/L (5-31); Total Protein 7.8 g/dL (6.5-8.0)
[2025-08-10 12:26] LABS: Hepatitis A Antibody IgM 0.18 Index (0-0.79); ~Hepatitis A Antibody IgM Nonreactive (Nonreactive)
[2025-08-10 12:28] LABS: HBS Num1 0.01 mIU/mL (0-7.99); HBc Num1 0.07 S/CO (0.00-0.79); HBsAGNum1 0.36 S/CO (0.00-0.99); Hepatitis A Antibody IgM 0.18 Index (0-0.79); Hepatitis B Surface Antigen Negative (Negative); ~HepC Num1 0.10 S/CO (0.00-0.79); ~Hepatitis A Antibody IgM Nonreactive (Nonreactive); ~Hepatitis B Surface Antibody NONREACTIVE (Nonreactive); ~Hepatitis C Antibody Nonreactive (Nonreactive)
[2025-08-11 09:54] LABS: EBV-NA IgG Index >600.00 U/mL; EBV-VCA IgG Ab >750.00 U/mL; EBV-VCA IgM Ab <36.00 U/mL
[2025-08-11 17:23] LABS: Lyme Abs Screen <0.90 index
[2025-08-11 21:19] LABS: A. Phagocytphilium DNA,RT-PCR NOT DETECTED (NOT DETECTED); Babesia Microti DNA, RT-PCR NOT DETECTED (NOT DETECTED); Borrelia Miyamotoi,DNA RT-PCR NOT DETECTED (NOT DETECTED); E.Chaffeensis DNA RT-PCR NOT DETECTED (NOT DETECTED); Lyme(Borrelia ssp)DNA RT-PCR NOT DETECTED (NOT DETECTED)
== END 2025-08-10 08:58 | disposition home or self-care (01) ==
LOC: HO.WFDLDS 08:57
PROVIDERS: PCP Physician Assistant Medical; Visit Provider Physician Assistant Medical
DX: R74.01 Elevation of levels of liver transaminase levels (principal); H61.23 Impacted cerumen, bilateral; I71.21 Aneurysm of the ascending aorta, without rupture; E78.00 Pure hypercholesterolemia, unspecified; I82.402 Acute embolism and thrombosis of unspecified deep veins of left lower extremity; E03.8 Other specified hypothyroidism; R53.82 Chronic fatigue, unspecified; Z79.890 Hormone replacement therapy; Z79.899 Other long term (current) drug therapy
CPT/HCPCS: 36415; 80076; 86308; 86617; 86618; 86664; 86665; 86704; 86706; 86709; 86803; 87340; 87468; 87469; 87478; 87484; 87798; 99212

== ENCOUNTER 2025-10-08 09:35 | Outpatient (AMB) | payer MEDICARE, OTHER, SELFPAY ==
--- NOTE | 2025-10-08 09:57 | A.OFFPC_ITS ---
Vital Signs 10/08/25 10:01 Height 5 ft Weight 173 lb 4 oz BMI 33.8 BP 128/80 Blood Pressure Location Lt brachial Position Sitting Respiration 12 Pulse 77 Pulse Source Pulse Oximeter Temp 97.6 F Temp Source Temporal Artery Scan Pulse Oximetry (%) 97 Oxygen Delivery Method Room Air Intake Visit Reasons: with me for transaminitis Intake Note: Jenifer presents in the office today for elevated liver enzymes. Allergies phenazopyridine (From Pyridium) Allergy (Verified 10/08/25 10:00) Unknown latex Allergy (Mild, Uncoded 10/08/25 10:00) rash Medication List - Last Reconciled 10/09/25 by YONI Borges cetirizine (Zyrtec) 10 mg PO DAILY PRN cholecalciferol (vitamin D3) 25 mcg PO DAILY rivaroxaban (Xarelto) 10 mg PO DAILY Synthroid (levothyroxine) 137 mcg PO DAILY NS Tobacco use date assessed: 10/08/25 Dental Screening Dental Screen Date: 10/08/25 Did you have a dental visit in the last 12 months?: No Did you have a dental problem in the last 6 months where you did not have access to dental care?: No Was dental information given to patient?: Patient declined HPI HPI Comments History of Present Illness Details This is a 70-year-old female with a history of hyperlipidemia, hypothyroidism, DVT of the lower extremity, aneurysm of the ascending aorta, osteopenia and obesity presenting for follow up. Transaminitis-she was evaluated by [facility]. Her liver enzymes continued to improve. They suspect it might have been due to the statin she was taking or due to a viral infection or antibiotic use around the time they were high. She denies abdominal pain, nausea, vomiting, itching or jaundice. She does not drink any alcohol. Hyperlipidemia -taken off statin due to elevated LFTs. She will do her blood work today. Hypothyroidism-taking Synthroid 137 mcg once daily. TSH normal. History of ascending aortic aneurysm-she is followed by Cardiology. She had an ultrasound of the abdominal aorta which was normal in 02/05/2021. She had an unremarkable nuclear stress test. No hypertension. She does not smoke. Left lower extremity DVT-previously reviewed notes from Hematology consult from 06/16/2021. She suffered a DVT without provoking factor in 2018. She was initially treated with warfarin and is now on Xarelto. She has no bleeding or complications or recurrent thrombosis. Notes indicate thrombophilia workup was done. Shared decision to continue anticoagulation due to risk of recurrence off anticoagulation. Osteopenia-calcium and vitamin-D supplementation. She had a colonoscopy in 07/08/2023, and it was recommended to repeat it in 5 years for precancerous polyps. She received the flu vaccine. ROS: Constitutional: No unexplained weight loss, fever, chills, or night sweats. Denies fatigue. Eyes: No vision changes, blurry vision, double vision, eye pain, eye redness, eye discharge. ENT: Denies ear pain, hearing loss, congestion, sore throat Respiratory: Denies shortness of breath Cardiovascular: No chest pain Gastrointestinal: No anorexia, nausea, vomiting or diarrhea. Denies abdominal pain. Denies blood in stools. Hematologic/Lymphatics: No bleeding or bruising. Skin: No rash or itching. Denies discoloration. Physical exam: Constitutional: Alert, in no distress. Eyes: Pupils are equal, round and reactive to light. Extraocular muscles intact. Anicteric. Ears: Small amount of cerumen and dry skin bilaterally. TMs haynes and pearly Neck: Supple, Full range of motion. No lymphadenopathy. No palpable thyroid masses. Respiratory: Clear to auscultation. Cardiovascular: S1 S2 regular. No murmurs. Gastrointestinal: Abdomen soft, mild tenderness in the right upper quadrant, non-distended. Normal bowel sounds. No palpable masses. No rebound or guarding. COUNT INCLUDES [facility] Medical History (Updated 08/10/25 @ 09:55 by YONI Borges) Fatigue Impacted cerumen, bilateral Transaminitis Anxiety Osteopenia Thoracic aortic aneurysm (TAA) Deep vein thrombosis, lower left extremity Colon polyps Pure hypercholesterolemia Hypothyroidism Psoriasis Eczema Thyroid disease History of aneurysm History of blood clots High cholesterol Sinusitis FH: cholecystectomy Surgical History H/O: hysterectomy Family History Mother Clotting disorder Father Cancer Social History (Updated 10/08/25 @ 10:01 by Bettie Larsen CMA) Housing: House Alcohol intake: never Patient Tobacco Use Status: Never used Tobacco e-Cigarette/Vaping Use: Never Used Second Hand Smoke Exposure: No service: No Current occupational status: retired Current occupational exposures/hazards: No Cognitive needs: No Hearing needs: No Vision needs: No Questionnaire Thrive Questionnaire Date Thrive assessed: 02/09/25 I am a: Patient What is your living situation today?: I have a steady place to live Within the past 12 months, did the food you bought not last and you didn't have the money to get more?: Never true Within the past 12 months, did you worry whether your food would run out before you got money to buy more?: Never true Do you have trouble paying for medicines?: No Do you have trouble getting transportation to medical appointments?: No Do you have trouble paying your heating and electricity bill?: No Do you have trouble taking care of your child, family member or friend?: No Do you have trouble with day-to-day activities such as bathing, preparing meals, shopping, managing finances, etc.?: No Are you currently unemployed and looking for a job?: No Are you interested in more education?: No Please select the resources that you would like help with: None Currently or been in a relationship where the following occur: No concerns reported THRIVE Score: 0 BROOK-7 AMB Questionnaire BROOK-7 Date BROOK - 7 assessed: 02/12/25 Source: Developed by Drs. Ham Rodriguez, Wendy Garcia, Saeed Ariza and colleagues, with an educational natividad from [employer]. Physical exam (Primary Care) Vital Signs: Last Vital Signs Temp 97.6 F 10/08/25 10:01 Pulse 77 10/08/25 10:01 Resp 12 10/08/25 10:01 BP 128/80 10/08/25 10:01 Pulse Ox 97 10/08/25 10:01 Oxygen Delivery Method Room Air 10/08/25 10:01 BMI result Body Mass Index 33.8 Tobacco/Smoking Status: Tobacco use Status Tobacco use date assessed 10/08/25 10/08/25 10:04 Patient Tobacco Use Status Never used Tobacco 10/08/25 10:01 e-Cigarette/Vaping Use Never Used 10/08/25 10:01 Thrive Assessment: Date of Thrive Assessment Date Thrive assessed 02/09/25 10/08/25 09:59 Currently or been in a relationship where the following occur: No concerns reported Coding Level of Care Code Est Pt Level 4 (80642) Diagnoses Transaminitis R74.01 Aneurysm of ascending aorta without rupture I71.21 Presence of rupture: without rupture Thoracic aorta location: ascending aorta Pure hypercholesterolemia E78.00 Deep vein thrombosis, lower left extremity I82.402 Chronicity: unspecified Other specified hypothyroidism E03.8 Hypothyroidism type: other Assessment & Plan Assessment & Plan (1) Transaminitis: Code(s): R74.01 - Elevation of levels of liver transaminase levels Category: Medical Plan: There were no findings on her CT to explain symptoms. She had lab work that ruled out hepatitis infection and tick-borne illness. Mononucleosis testing was consistent with past infection. She saw Gastroenterology. Liver enzymes trending down. We will repeat. (2) Thoracic aortic aneurysm (TAA): Code(s): I71.20 - Thoracic aortic aneurysm, without rupture, unspecified Category: Medical Qualifiers: Presence of rupture: without rupture Thoracic aorta location: ascending aorta Qualified Code(s): I71.21 - Aneurysm of the ascending aorta, without rupture Plan: This has been stable. She has a public relations director monitoring this. (3) Pure hypercholesterolemia: Code(s): E78.00 - Pure hypercholesterolemia, unspecified Category: Medical Plan: Continue Mediterranean diet. She is stopped her statin due to transaminitis. She would like lab work faxed to her public relations director. Patient says they discussed alternatives to statins if cholesterol increases. (4) Deep vein thrombosis, lower left extremity: Code(s): I82.402 - Acute embolism and thrombosis of unspecified deep veins of left lower extremity Category: Medical Qualifiers: Chronicity: unspecified Plan: Continue Xarelto. (5) Hypothyroidism: Code(s): E03.9 - Hypothyroidism, unspecified Category: Medical Qualifiers: Hypothyroidism type: other Qualified Code(s): E03.8 - Other specified hypothyroidism Plan: Continue levothyroxine. Plan Follow up in 6 months. Orders: Orders Lipid Panel 10/08/25 E03.8 - Other specified hypothyroidism, E78.00 - Pure hypercholesterolemia, unspecified, E78.5 - Hyperlipidemia, unspecified, I71.21 - Aneurysm of the ascending aorta, without rupture, M85.80 - Other specified disorders of bone density and structure, unspecified site, R74.01 - Elevation of levels of liver transaminase levels Comprehensive Met. Panel 10/08/25 E03.8 - Other specified hypothyroidism, E78.00 - Pure hypercholesterolemia, unspecified, I71.21 - Aneurysm of the ascending aorta, without rupture, M85.80 - Other specified disorders of bone density and structure, unspecified site, R74.01 - Elevation of levels of liver transaminase levels Vitamin D 25-OH (D2 and D3) 10/08/25 E03.8 - Other specified hypothyroidism, E78.00 - Pure hypercholesterolemia, unspecified, I71.21 - Aneurysm of the ascending aorta, without rupture, M85.80 - Other specified disorders of bone density and structure, unspecified site, R74.01 - Elevation of levels of liver transaminase levels XR DEXA axial skeleton 10/08/25 Z78.0 - Asymptomatic menopausal state MM screening mammo BI 10/08/25 Z12.31 - Encounter for screening mammogram for malignant neoplasm of breast Medications: Refilled Synthroid (levothyroxine) 137 mcg PO DAILY 90 tabs 3RF NS Discontinued carbamide peroxide 6.5% (Debrox) Discontinued Reason: Doctor's Order 5 drps otic (ears) DAILY 4 days 15 mL 0RF
[2025-10-08 10:01] VITALS: BP 128/80; PULSE 77; RESP 12; TEMP 36.4; O2SAT 97; BMI 33.8
--- OUTSIDE RECORDS SUMMARY | 2025-10-08 13:34 | XMS_ITS | Clinical Summary ---
Author Organization [facility] Address [address] [place] [address] Care Team Providers Care Records Section Supervisor Name Role Phone Hanna Montgomery MD Primary [...] 1,000 Units by mouth daily. 0 Active [place]-3 Fatty Acids (Fish Oil) 1000 MG CAPS [...] age to complete this topic Care Teams Records Section Supervisor Relationship Specialty Start Date End Date Hanna Montgomery MD PCP - General Internal Medicine 06/02/21
== END 2025-10-08 10:33 | disposition home or self-care (01) ==
LOC: HO.HMCFM 09:36
PROVIDERS: PCP Physician Assistant Medical; Visit Provider Physician Assistant Medical
DX: R74.01 Elevation of levels of liver transaminase levels (principal); I71.21 Aneurysm of the ascending aorta, without rupture; E78.00 Pure hypercholesterolemia, unspecified; I82.402 Acute embolism and thrombosis of unspecified deep veins of left lower extremity; E03.8 Other specified hypothyroidism

== ENCOUNTER 2025-10-08 09:35 | Outpatient (REF) | payer MEDICARE, OTHER, SELFPAY ==
[2025-10-08 14:41] LABS: Alanine Aminotransferase 25 U/L (0-31); Albumin Level 4.8 g/dL (3.5-5.0); Alkaline Phosphatase 63 U/L (39-117); Anion Gap 11 (12-20); Aspartate Amino Transferase 29 U/L (5-31); Blood Urea Nitrogen 13 mg/dL (9-16); Calcium 10.2 mg/dL (8.4-10.2); Carbon Dioxide 25 mmol/L (22-29); Chloride 108 mmol/L (96-108); Cholesterol 228 mg/dL (<200); Estimated Glomerular Filt Rate > 60; HDL Cholesterol 52 mg/dL (>40); Potassium 4.1 mmol/L (3.3-5.1); Sodium 140 mmol/L (135-145); Total Protein 8.0 g/dL (6.5-8.0); Triglycerides 122 mg/dL (<150)
--- OUTSIDE RECORDS SUMMARY | 2025-10-08 16:06 | XMS_ITS | Clinical Summary ---
Author Organization [facility] [address] [facility] Address [address] [place] [address] Phone Care Team Providers Care Human Resources Trainer Name Role Phone Kym Peña MD Primary Care Provider [phone] Immunizations Immunization Administration Dates Next Due Pfizer SARS-CoV-2 COVID-19, mRNA, LNP-S, preservative free 03/10/2021,02/15/2021 Surgical History Surgery Date Site/Laterality Comments SECTION PROCEDURE: [place] DELIVERY ONLY TONSILLECTOMY PROCEDURE: HISTORICAL TONSILLECTOMY TUBAL LIGATION PROCEDURE: HISTORICAL TUBAL LIGATION OTHER SURGICAL HISTORY PROCEDURE: [place] TOT ABD HYST W/WO RMVL TUBE OVARY [...] aortic ane urysm Paternal Grandfather (Age 65) OR Sister 1 Alive healthy Sister 2 Alive healthy Sister 3 Alive healthy Sister 4 Alive healthy Son Alive healthy Social History Tobacco Use Types Packs/Day Years Used Date Smoking Tobacco: Former Cigarettes 1.5 Q uit: 09/17/2011 Smokeless Tobacco: Never Alcohol [...] Health Maintenance Due Date Last Done Comments Colorectal Cancer Screening: Colonoscopy 1955 Zoster Vaccines (2 of 3) 11/05/2013 09/10/2013 Cholesterol Screening (Lipid Panel) 10/28/2022 Falls Risk Assessment 10/28/2022 Hepatitis C [...] Signed Date: 12/23/2024 13:34 ET Workstation ID: [id number] Transcribed By: Self Edit Transcribed Date: 12/23/2024 [...] L1 fracture deformity. No acute fracture. Chronic [id number] endplate compression deformity. IMPRESSION: No new or suspicious pulmonary nodules. Lung RADS 1-negative. Recommendcontinued screening with low-dose chest CT in 12 months. -------- FINAL REPORT -------- Dictated By: TOBY MAXWELL Dictated Date: 12/23/2024 13:10 ET Assigned Physician: TOBY MAXWELL Reviewed and Electronically Signed By: TOBY MAXWELL Signed Date: 12/23/2024 13:34 ET Workstation ID: [id number] Transcribed By: Self Edit Transcribed Date: 12/23/2024 [...] Final * DXA BONE DENSITY STUDY 1+ JASKARAN PRAJAPATI (08/18/2019 10:14 AM EDT) Anatomical Region Laterality [...] on the World Health Organization criteria, Jenifer Dxion should be classified as having osteopenia. This patient has a 8.3% risk of major osteoporotic fracture and a 0.7% risk of hip fracture over the next 10 years. (World Health Organization Fracture Risk Assessment) The [facility] Department of Internal Medicine recommends using [...] (World Health Organization Fracture Risk Assessment) The [facility] Department of Internal Medicine recommendsusing National [...] fracture risk by FRAX. Hanna Montgomery MD IMG DXA PROCEDURES Clara l Result from Last 3 Months or Most Recently Relevant to Health Maintenance Insurance MEDICARE [facility] Care Teams Human Resources Trainer Relationship Specialty Start Date End Date Kym Peña MD PCP - General Internal Medicine 09/18/22
[2025-10-13 16:12] LABS: Vitamin D 25-OH, D2 <4 ng/mL; Vitamin D 25-OH, D3 29 ng/mL; Vitamin D 25-OH, Total 29 ng/mL (30-100)
== END 2025-10-08 09:36 | disposition home or self-care (01) ==
LOC: HO.WFDLDS 09:35
PROVIDERS: PCP Physician Assistant Medical; Visit Provider Physician Assistant Medical
DX: R74.01 Elevation of levels of liver transaminase levels (principal); E78.5 Hyperlipidemia, unspecified; E78.00 Pure hypercholesterolemia, unspecified; M85.80 Other specified disorders of bone density and structure, unspecified site; I71.21 Aneurysm of the ascending aorta, without rupture; I82.402 Acute embolism and thrombosis of unspecified deep veins of left lower extremity; E03.8 Other specified hypothyroidism
CPT/HCPCS: 36415; 80053; 80061; 82306; 99212